=== PATIENT | female | born 1955 | race Caucasian/White ===

== ENCOUNTER → 2020-03-06 14:35 | Outpatient (CLI) | payer MEDICARE, SELFPAY ==
[2020-03-06 15:40] LABS: Basophils # 0.1 K/mm3 (0-0.2); Basophils % 0.9 % (0.1-2.0); Eosinophils # 0.1 K/mm3 (0.0-0.4); Eosinophils % 1.7 % (0.1-12.0); Hematocrit 48.3 % (37.0-47.0); Hemoglobin 16.2 g/dL (12.2-16.2); Lymphocytes # 1.8 K/mm3 (0.7-4.5); Lymphocytes % 26.7 % (10-50); Mean Corpuscular HGB Conc 33.6 g/dL (31.8-35.4); Mean Corpuscular Hemoglobin 29.1 pg (27.0-31.2); Mean Corpuscular Volume 86.6 fl (81-99); Mean Platelet Volume 9.1 fl (7.4-10.4); Monocytes # 0.5 K/mm3 (0.1-1.0); Monocytes % 7.5 % (1.7-9.3); Neutrophils # 4.3 K/mm3 (1.8-7.8); Neutrophils % 63.1 % (37.0-80.0); Platelet Count 215 K/mm3 (142-424); Red Blood Count 5.58 M/mm3 (4.20-5.40); Red Cell Distribution Width 13.7 % (11.5-17.5); White Blood Count 6.7 K/mm3 (4.8-10.8)
[2020-03-06 15:51] LABS: Alanine Aminotransferase 29 U/L (12-78); Albumin Level 4.2 g/dl (3.5-5.0); Albumin/Globulin Ratio 1.4 (1.1-1.8); Alkaline Phosphatase 121 U/L (38-126); Anion Gap 9.4 mEq/L (5-15); Aspartate Amino Transferase 38 U/L (14-36); Bilirubin,Total 0.4 mg/dl (0.2-1.3); Blood Urea Nitrogen 18 mg/dl (7-17); Calcium 9.8 mg/dl (8.4-10.2); Carbon Dioxide 33 mmol/L (22.0-30.0); Chloride 104 mmol/L (98-107); Chol/HDL Ratio 2.5 (1-3.5); Cholesterol 202 mg/dl (140-200); Estimated Glomerular Filt Rate 72 ml/min (>60); GFR (African American) 87 ML/MIN (>60); Globulin 3.1 g/dL (1.3-3.2); Glucose 89 mg/dl (74-100); HDL Cholesterol 80 mg/dl (40-60); Potassium 5.4 mmoL/L (3.5-5.1); Sodium 141 mmol/L (136-145); Total Protein,Serum 7.3 g/dl (6.3-8.2); Triglycerides 83 mg/dl (30-150); VLDL Cholesterol 17 mg/dL (0-40)
[2020-03-06 16:02] LABS: Direct LDL Cholesterol 89.27 mg/dL (100-129)
[2020-03-06 16:10] LABS: 25-OH Vitamin D, Total 41.5 ng/mL (30-100); T4 (Thyroxine) 15.7 ug/dl (5.53-11.0)
[2020-03-06 16:23] LABS: Thyroid Stimulating Hormone 0.49 uIU/mL (0.465-4.68)
== END ==
PROVIDERS: Visit Provider Family Medicine
DX: E55.9 Vitamin D deficiency, unspecified (principal); C73 Malignant neoplasm of thyroid gland; E75.5 Other lipid storage disorders
CPT/HCPCS: 80053; 80061; 82306; 84436; 84443; 85025

== ENCOUNTER → 2021-07-24 14:18 | Outpatient (CLI) | payer MEDICARE, SELFPAY ==
[2021-07-24 13:31] LABS: Basophils # 0.1 K/mm3 (0-0.2); Eosinophils # 0.1 K/mm3 (0.0-0.4); Eosinophils % 2.2 % (0.1-12.0); Hematocrit 46.9 % (37.0-47.0); Hemoglobin 15.6 g/dL (12.2-16.2); Lymphocytes # 1.5 K/mm3 (0.7-4.5); Lymphocytes % 27.5 % (10-50); Mean Corpuscular HGB Conc 33.4 g/dL (31.8-35.4); Mean Corpuscular Hemoglobin 29.6 pg (27.0-31.2); Mean Corpuscular Volume 88.5 fl (81-99); Mean Platelet Volume 9.5 fl (7.4-10.4); Monocytes # 0.5 K/mm3 (0.1-1.0); Monocytes % 9.2 % (1.7-9.3); Neutrophils # 3.2 K/mm3 (1.8-7.8); Neutrophils % 59.1 % (37.0-80.0); Platelet Count 227 K/mm3 (142-424); Red Blood Count 5.29 M/mm3 (4.20-5.40); White Blood Count 5.4 K/mm3 (4.8-10.8)
[2021-07-24 13:34] LABS: Alanine Aminotransferase 37 U/L (12-78); Albumin Level 3.9 g/dl (3.5-5.0); Albumin/Globulin Ratio 1.3 (1.1-1.8); Alkaline Phosphatase 135 U/L (38-126); Anion Gap 8.3 mEq/L (5-15); Aspartate Amino Transferase 45 U/L (14-36); Bilirubin,Total 0.3 mg/dl (0.2-1.3); Blood Urea Nitrogen 21 mg/dl (7-17); Calcium 9.5 mg/dl (8.4-10.2); Carbon Dioxide 32 mmol/L (22.0-30.0); Chloride 104 mmol/L (98-107); Chol/HDL Ratio 2.9 (1-3.5); Cholesterol 209 mg/dl (140-200); Estimated Glomerular Filt Rate 83 ml/min (>60); GFR (African American) 101 ML/MIN (>60); Globulin 2.9 g/dL (1.3-3.2); Glucose 90 mg/dl (74-100); HDL Cholesterol 73 mg/dl (40-60); Potassium 5.3 mmoL/L (3.5-5.1); Sodium 139 mmol/L (136-145); Total Protein,Serum 6.8 g/dl (6.3-8.2); Triglycerides 65 mg/dl (30-150); VLDL Cholesterol 13 mg/dL (0-40)
[2021-07-24 13:44] LABS: Direct LDL Cholesterol 95.39 mg/dL (100-129)
[2021-07-24 14:04] LABS: Thyroid Stimulating Hormone 0.23 uIU/mL (0.465-4.68)
== END ==
PROVIDERS: Visit Provider Family Medicine
DX: E03.9 Hypothyroidism, unspecified (principal); Z85.850 Personal history of malignant neoplasm of thyroid
CPT/HCPCS: 80053; 80061; 84439; 84443; 85025

== ENCOUNTER → 2021-08-06 07:17 | Outpatient (CLI) | payer SELFPAY ==
--- NOTE | 2021-08-06 07:21 | CT_ITS ---
FINAL REPORT CLINICAL HISTORY: . cad screening FINDINGS: CT CORONARY CALCIUM SCORE W/O TECHNIQUE: Thin-section axial images were obtained through the heart and coronary arteries per CT coronary calcium score protocol. This study was performed with techniques to keep radiation doses as low as reasonably achievable (ALARA). Individualized dose reduction techniques using automated exposure control or adjustment of mA and/or kV according to the patient's size were employed. FINDINGS: On the axial images, there is calcification within the left anterior descending coronary artery. This gives a coronary artery calcium score of 9 based on the Agatston scale. This coronary artery calcium score places the patient within the 36th percentile based on age and gender. The heart size is normal. There is no pleural or pericardial effusion. Limited evaluation of the lungs reveal no suspicious nodule. There is mild scarring in the lung bases. IMPRESSION: Coronary artery calcium score of 9 based on the Agatston scale which places the patient in the 36th percentile based on age and gender. Reviewed, Interpreted and Dictated by Devan Dias III, MD Transcribed by Loren Ruiz Authenticated and [facility]
== END ==
PROVIDERS: PCP Family Medicine; Visit Provider Family Medicine
DX: Z82.49 Family history of ischemic heart disease and other diseases of the circulatory system (principal)
CPT/HCPCS: 75571

== ENCOUNTER → 2022-07-15 20:43 | Outpatient (CLI) | payer MEDICARE, SELFPAY ==
[2022-07-15 19:07] LABS: Basophils # 0.1 K/mm3 (0-0.2); Basophils % 0.9 % (0.1-2.0); Eosinophils # 0.1 K/mm3 (0.0-0.4); Eosinophils % 1.8 % (0.1-12.0); Hematocrit 46.4 % (37.0-47.0); Hemoglobin 14.7 g/dL (12.2-16.2); Lymphocytes # 1.8 K/mm3 (0.7-4.5); Lymphocytes % 28.2 % (10-50); Mean Corpuscular HGB Conc 31.6 g/dL (31.8-35.4); Mean Corpuscular Hemoglobin 28.1 pg (27.0-31.2); Mean Corpuscular Volume 88.7 fl (81-99); Mean Platelet Volume 9.9 fl (7.4-10.4); Monocytes # 0.5 K/mm3 (0.1-1.0); Neutrophils % 62.1 % (37.0-80.0); Platelet Count 216 K/mm3 (142-424); Red Blood Count 5.23 M/mm3 (4.20-5.40); Red Cell Distribution Width 13.8 % (11.5-17.5); White Blood Count 6.5 K/mm3 (4.8-10.8)
[2022-07-15 20:39] LABS: Alanine Aminotransferase 28 U/L (12-78); Albumin Level 4.1 g/dl (3.5-5.0); Albumin/Globulin Ratio 1.6 (1.1-1.8); Alkaline Phosphatase 111 U/L (38-126); Anion Gap 14.2 mEq/L (5-15); Aspartate Amino Transferase 36 U/L (14-36); Bilirubin,Total 0.4 mg/dl (0.2-1.3); Blood Urea Nitrogen 20 mg/dl (7-17); Calcium 9.2 mg/dl (8.4-10.2); Carbon Dioxide 30 mmol/L (22.0-30.0); Chloride 103 mmol/L (98-107); Chol/HDL Ratio 2.4 (1-3.5); Cholesterol 213 mg/dl (140-200); Estimated Glomerular Filt Rate 83 ml/min (>60); GFR (African American) 101 ML/MIN (>60); Globulin 2.6 g/dL (1.3-3.2); Glucose 80 mg/dl (74-100); HDL Cholesterol 88 mg/dl (40-60); Potassium 5.2 mmoL/L (3.5-5.1); Sodium 142 mmol/L (136-145); Total Protein,Serum 6.7 g/dl (6.3-8.2); Triglycerides 88 mg/dl (30-150); VLDL Cholesterol 18 mg/dL (0-40)
[2022-07-15 20:52] LABS: Direct LDL Cholesterol 101.32 mg/dL (100-129)
[2022-07-15 21:11] LABS: Thyroid Stimulating Hormone 0.34 uIU/mL (0.465-4.68)
[2022-07-15 22:08] LABS: T4 (Thyroxine) 14.3 ug/dl (5.53-11.0)
== END ==
PROVIDERS: PCP Family Medicine; Visit Provider Family Medicine
DX: E89.0 Postprocedural hypothyroidism (principal); I10 Essential (primary) hypertension; Z85.850 Personal history of malignant neoplasm of thyroid
CPT/HCPCS: 80053; 80061; 84436; 84443; 85025

== ENCOUNTER 2023-02-23 18:01 | Outpatient (CLI) | payer MEDICARE, SELFPAY ==
[2023-02-23 19:11] LABS: Basophils # 0.1 K/mm3 (0-0.2); Basophils % 1.1 % (0.1-2.0); Eosinophils # 0.1 K/mm3 (0.0-0.4); Eosinophils % 1.7 % (0.1-12.0); Hematocrit 46.5 % (37.0-47.0); Hemoglobin 15.3 g/dL (12.2-16.2); Lymphocytes # 1.8 K/mm3 (0.7-4.5); Mean Platelet Volume 9.3 fl (7.4-10.4); Monocytes # 0.5 K/mm3 (0.1-1.0); Monocytes % 7.5 % (1.7-9.3); Neutrophils # 3.8 K/mm3 (1.8-7.8); Neutrophils % 60.6 % (37.0-80.0); Platelet Count 242 K/mm3 (142-424); Red Blood Count 5.11 M/mm3 (4.20-5.40); Red Cell Distribution Width 13.4 % (11.5-17.5); White Blood Count 6.2 K/mm3 (4.8-10.8)
[2023-02-23 19:12] LABS: Chloride 102 mmol/L (98-107); Sodium 138 mmol/L (136-145)
[2023-02-23 19:13] LABS: Potassium 4.4 mmoL/L (3.5-5.1)
[2023-02-23 19:15] LABS: Alanine Aminotransferase 32 U/L (12-78); Albumin Level 4.1 g/dl (3.5-5.0); Albumin/Globulin Ratio 1.5 (1.1-1.8); Alkaline Phosphatase 118 U/L (38-126); Anion Gap 12.4 mEq/L (5-15); Aspartate Amino Transferase 38 U/L (14-36); Bilirubin,Total 0.5 mg/dl (0.2-1.3); Blood Urea Nitrogen 17 mg/dl (7-17); Carbon Dioxide 28 mmol/L (22.0-30.0); Cholesterol 212 mg/dl (140-200); Estimated Glomerular Filt Rate 83 ml/min (>60); GFR (African American) 101 ML/MIN (>60); Globulin 2.7 g/dL (1.3-3.2); Total Protein,Serum 6.8 g/dl (6.3-8.2); Triglycerides 83 mg/dl (30-150); VLDL Cholesterol 17 mg/dL (0-40)
[2023-02-23 19:16] LABS: Calcium 8.9 mg/dl (8.4-10.2); Chol/HDL Ratio 3.3 (1-3.5); Glucose 84 mg/dl (74-100); HDL Cholesterol 65 mg/dl (40-60)
[2023-02-23 19:27] LABS: Direct LDL Cholesterol 108.79 mg/dL (100-129)
[2023-02-23 19:32] LABS: T4 (Thyroxine) 15.3 ug/dl (5.53-11.0)
[2023-02-23 19:46] LABS: Thyroid Stimulating Hormone 0.72 uIU/mL (0.465-4.68)
== END 2023-02-23 23:59 ==
LOC: LAB.DROPOF 18:01
PROVIDERS: PCP Family Medicine; Visit Provider Family Medicine
DX: E03.9 Hypothyroidism, unspecified (principal); Z85.850 Personal history of malignant neoplasm of thyroid; I10 Essential (primary) hypertension
CPT/HCPCS: 80053; 80061; 84436; 84443; 85025

== ENCOUNTER 2023-08-15 09:59 | Outpatient (CLI) | payer MEDICARE, SELFPAY ==
[2023-08-15 19:13] LABS: T4 (Thyroxine) 11.1 ug/dl (5.53-11.0)
== END 2023-08-15 23:59 | disposition home or self-care (01) ==
LOC: LAB.DROPOF 08-16 10:00
PROVIDERS: PCP Family Medicine; Visit Provider Family Medicine
DX: E89.0 Postprocedural hypothyroidism; Z85.850 Personal history of malignant neoplasm of thyroid
CPT/HCPCS: 84436; 84443

== ENCOUNTER 2023-12-01 18:17 | Outpatient (CLI) | payer MEDICARE, SELFPAY ==
[2023-12-01 18:06] LABS: Basophils # 0.1 K/mm3 (0-0.2); Basophils % 1.6 % (0.1-2.0); Eosinophils # 0.1 K/mm3 (0.0-0.4); Eosinophils % 2.1 % (0.1-12.0); Hematocrit 45.8 % (37.0-47.0); Hemoglobin 15.6 g/dL (12.2-16.2); Lymphocytes # 1.5 K/mm3 (0.7-4.5); Lymphocytes % 26.8 % (10-50); Mean Corpuscular Hemoglobin 30.4 pg (27.0-31.2); Mean Corpuscular Volume 89.5 fl (81-99); Mean Platelet Volume 8.5 fl (7.4-10.4); Monocytes # 0.5 K/mm3 (0.1-1.0); Monocytes % 8.1 % (1.7-9.3); Neutrophils # 3.5 K/mm3 (1.8-7.8); Neutrophils % 61.5 % (37.0-80.0); Platelet Count 232 K/mm3 (142-424); Red Blood Count 5.12 M/mm3 (4.20-5.40); Red Cell Distribution Width 13.5 % (11.5-17.5); White Blood Count 5.7 K/mm3 (4.8-10.8)
[2023-12-01 18:10] LABS: Albumin Level 4.5 g/dl (3.5-5.0); Chloride 105 mmol/L (98-107); Potassium 4.4 mmoL/L (3.5-5.1); Sodium 139 mmol/L (136-145)
[2023-12-01 18:12] LABS: Alanine Aminotransferase 35 U/L (12-78); Anion Gap 12.4 mEq/L (5-15); Aspartate Amino Transferase 47 U/L (14-36); Blood Urea Nitrogen 18 mg/dl (7-17); Carbon Dioxide 26 mmol/L (22.0-30.0); Estimated Glomerular Filt Rate 83 ml/min (>60); GFR (African American) 100 ML/MIN (>60)
[2023-12-01 18:13] LABS: Albumin/Globulin Ratio 1.5 (1.1-1.8); Alkaline Phosphatase 115 U/L (38-126); Bilirubin,Total 0.6 mg/dl (0.2-1.3); Calcium 9.7 mg/dl (8.4-10.2); Chol/HDL Ratio 2.9 (1-3.5); Cholesterol 247 mg/dl (140-200); Glucose 92 mg/dl (74-100); HDL Cholesterol 84 mg/dl (40-60); Total Protein,Serum 7.5 g/dl (6.3-8.2); Triglycerides 86 mg/dl (30-150); VLDL Cholesterol 17 mg/dL (0-40)
[2023-12-01 18:24] LABS: Direct LDL Cholesterol 115.12 mg/dL (100-129)
[2023-12-01 18:28] LABS: T4 (Thyroxine) 14.8 ug/dl (5.53-11.0)
[2023-12-01 18:42] LABS: Thyroid Stimulating Hormone 3.96 uIU/mL (0.465-4.68)
== END 2023-12-01 23:59 | disposition home or self-care (01) ==
LOC: LAB.DROPOF 18:18
PROVIDERS: PCP Family Medicine; Visit Provider Family Medicine
DX: E03.9 Hypothyroidism, unspecified (principal); Z85.850 Personal history of malignant neoplasm of thyroid; I10 Essential (primary) hypertension
CPT/HCPCS: 80053; 80061; 84436; 84443; 85025

== ENCOUNTER 2024-11-05 15:47 | Outpatient (CLI) | payer MEDICARE, SELFPAY ==
--- OUTSIDE RECORDS SUMMARY | 2024-11-05 15:50 | XMS_ITS | Encounter Summary ---
Author Organization [facility] Address [address] [place] [id number] Care Team Providers Care Oil Scout Name Role Phone Lacy Zayas MD Primary Care Provider [phone] Source Comments This information has been disclosed to you from confidential records protectfrom disclosure by state law. You shall make no further disclosure of thisinformation without the specific, written, and informed release of theindividual to whom it pertains, or as otherwise permitted by law. A generalauthorization for the release of medical or other information is not sufficientfor the purposes of the release of HIV test results or diagnoses. [id number] Encounter Details Date Type Department Care Team (Late st Contact Info) Description 05/17/2014 Orders Only [facility] Nuclear Medicine [address] [place] [phone] Nabeel Catsro MD Malignant neoplasm of thyroid gland (CMS-HCC) (Primary Dx) Social History Tobacco Use Types Packs/Day Years Used Date Smoking Tobacco: Never Assessed Comments Unknown Sex and Gender Information Value Date Recorded Sex Assigned at Not on file Legal Sex Female 7:05 PM EST Gender Identity Not on file Sexual Orientation Not on file documented as of this encounter Plan of Treatment Not on file documented as of this encounter Results * (ABNORMAL) Thyroglobulin (05/20/2014 10:30 AM EDT) Thyroglobulin <0.2(L) 1.6 - 59.9 ng/mL 05/21/2014 11:34 AM EDT [facility] Thyroglobulin Ab <20.0 0.0 - 39.0 IU/mL 05/21/2014 12:07 PM EDT [facility] Serum specimen (specimen) 05/20/2014 10:30 AM EDT 05/20/2014 11:22 AM EDT Nabeel Castro MD LAB BLOOD ORDERABLES Final Result Performing Organization Address City/[facility] Co de Phone Number [facility] [address] [facility]. [address] * (ABNORMAL) TSH (Thyroid Stimulating Hormone) (05/20/2014 10:30 AM EDT) TSH 0.12(L) 0.34 - 5.60 uIU/mL 05/20/2014 1:05 PM EDT [facility] Comment:Please note: Effecti ve 02/19/14, reference range for this assay has changed. Serum specimen (specimen) 05/20/2014 10:30 AM EDT 05/20/2014 11:22 AM EDT Nabeel Castro MD LAB BLOOD ORDERABLES Final Result Performing Organization Address City/[facility] Co de Phone Number [facility] [address] [facility]. [address] documented in this encounter Visit Diagnoses Diagnosis Malignant neoplasm of thyroid gland (CMS-HCC)- Primary Malignant neoplasm of thyroid gland documented in this encounter Care Teams Oil Scout Relationship Specialty [place] [address] [place], [place] [phone] PCP - General 12/11/07 documented as of this encounter
--- OUTSIDE RECORDS SUMMARY | 2024-11-05 15:50 | XMS_ITS | Clinical Summary ---
Author Organization [facility] Address [address] [place] [address] Care Team Providers Care Jury Consultant Name Role Phone Lacy Zayas MD Primary Care Provider [phone] Source Comments This information has been disclosed to you from confidential records protectedfrom disclosure by state law. You shall make no further disclosure of thisinformation without the specific, written, and informed release of theindividual to whom it pertains, or as otherwise permitted by law. A generalauthorization for the release of medical or other information is not sufficientfor the purposes of therelease of HIV test results or diagnoses. 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
--- OUTSIDE RECORDS SUMMARY | 2024-11-05 15:50 | XMS_ITS | Encounter Summary ---
Author Organization [facility] Address [address] [place] [address] Care Team Providers Care Back Up Machine Operator Name Role Phone Lacy Zayas MD Primary Care Provider [phone] Source Comments This information has been disclosed [...] release of HIV test results or diagnoses. [id number] [facility] Encounter Details Date Type Department Care Team (Late st Contact Info) Description 05/20/[address] [facility] Nuclear Medicine [address] [place] [phone] Vannesa Varela Malignant neoplasm of thyroid gland (CMS-HCC) Social History Tobacco Use Types Packs/Day Years Used Date Smoking Tobacco: Never Assessed Comments Unknown Sex and Gender Information Value Date Recorded Sex Assigned at Not on file Legal Sex Female 7:05 PM EST Gender Identity Not on file Sexual Orientation Not on file documented as of this encounter Plan of Treatment Not on file documented as of this encounter Procedures Procedure Name Priority Date/Time Associated Diagnosis Comments THYROGLOBULIN Routine 05/20/2014 10:30 AM EDT Malignant neoplasm of thyroid gland (CMS-HCC) TSH Routine 05/20/2014 10:30 AM EDT Malignant neoplasm of thyroid gland (CMS-HCC) documented in this encounter Results * (ABNORMAL) Thyroglobulin (05/20/2014 10:30 AM EDT) Thyroglobulin <0.2(L) 1.6 - 59.9 ng/mL 05/21/2014 11:34 AM EDT [facility] Thyroglobulin Ab <20.0 0.0 - 39.0 IU/mL 05/21/2014 12:07 PM EDT [facility] Serum specimen (specimen) 05/20/2014 10:30 AM EDT 05/20/2014 11:22 AM EDT Nabeel Castro MD LAB BLOOD ORDERABLES Final Result [facility] [address] [facility]. [address] * (ABNORMAL) TSH (Thyroid Stimulating Hormone) (05/20/2014 10:30 AM EDT) TSH 0.12(L) 0.34 - 5.60 uIU/mL 05/20/2014 1:05 PM EDT [facility] Comment:Please note: Effecti ve 02/19/14, reference range for this assay has changed. Serum specimen (specimen) 05/20/2014 10:30 AM EDT 05/20/2014 11:22 AM EDT Nabeel Castro MD LAB BLOOD ORDERABLES Final Result [facility] [address] [facility]. [address] documented in this encounter Visit Diagnoses Diagnosis Malignant neoplasm of thyroid gland (CMS-HCC) Malignant neoplasm of thyroid gland documented in this encounter Care Teams Back Up Machine Operator Relationship Specialty [place] [address] [place] [id number] PCP - General 12/11/07 documented as of this encounter
--- OUTSIDE RECORDS SUMMARY | 2024-11-05 15:50 | XMS_ITS | Continuity of Care Document ---
Author Organization [facility] Address [address] [place] [address] Phone Care Team Providers Care Telemarketing Sales Representative Name Role Phone José Priest MD Primary Care Provider Kanchan Martinez MD Unavailable [phone] Encounters Date Type Department Care Team Description 05/15/2024 12:40 PM EDT Office Visit SEP Diabetes [address] [address] Susan Mike MD Postoperative hypothyroidism (Primary Dx); History of thyroid cancer 05/10/2024 Travel 05/01/2024 9:52 AM EDT - 05/01/2024 11:59 PM EDT Hospital Encounter [facility] [address] [place] [address] Postsurgical hypothyroidism; History of thyroid cancer Discharge Disposition: Home or Self Care 04/25/2024 11:00 AM EDT Office Visit [facility] [place] [address] [place] [address] Kanchan Martinez MD Chest pain, unspecified type (Primary Dx); Essential hypertension 04/24/2024 Travel 04/19/2024 10:40 PM EST - 04/21/2024 5:31 PM EST Hospital Encounter [facility] 6D TCU [facility] 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 [facility] [place] [address] Kanchan Martinez MD CORONARY ANGIOGRAM / CARDIAC CATHETERIZATION 04/19/2024 Travel 02/16/2024 Orders Only [facility] [address] [address] Susan Mike MD 02/14/2024 Telephone SEP [address] [address] Susan Mike MD Other (Path report request ) 02/13/2024 4:42 PM EST - 02/13/2024 11:59 PM EST Hospital Encounter [facility] [address] [place] [address] Postsurgical hypothyroidism; History of thyroid cancer Discharge Disposition: Home or Self Care 02/13/2024 3:00 PM EST Office Visit [facility] [address] [address] Susan Mike MD Postsurgical hypothyroidism (Primary Dx); History of thyroid cancer 02/11/2024 Travel 02/03/2024 Telephone SEP [address] [phone] Susan Mike MD Other (Records ) 10/10/2023 9:41 AM EDT - 10/10/2023 11:59 PM EDT Hospital Encounter [facility] Center Mammography [address] [place] [address] Encounter for screening mammogram for malignant neoplasm of breast Discharge Disposition: Home or Self Care 01/24/2023 10:30 AM EST Office Visit SEP Gen Surg Edg [address] [facility] [address] [place] [address] Jared Cedeno MD Status post laparoscopic appendectomy (Primary Dx) 01/19/2023 Telephone SEP Vascular Surg Edg [address] [facility] [address] [place] [address] Jared Cedeno MD Reschedule 01/14/2023 6:07 AM EST - 01/15/2023 11:47 AM EST Hospital Encounter [facility] [address] [place] [address] Hayley Waterman MD Habib, MD Wilian Garland Sidney D, MD Acute appendicitis with localized peritonitis, without perforation, abscess, or gangrene (Primary Dx); Acute appendicitis, unspecified acute appendicitis type Discharge Disposition: Home or Self Care 01/14/2023 4:15 PM EST Anesthesia Event [facility] [address] [place] [address] Alon Colon DO 01/14/2023 3:10 PM EST - 01/14/2023 4:10 PM EST Surgery [facility] [address] [place] [address] Jared Cedeno MD LAPAROSCOPIC APPENDECTOMY 01/14/2023 Travel 10/19/2022 9:30 AM EDT Office Visit [facility] [address] [place] [phone] Scooby Bustos APRN Chronic eczematous otitis externa of both ears (Primary Dx); Bilateral impacted cerumen 03/22/2022 Patient Outreach SEP [facility] [address] [place] [address] Lacy Zayas MD Central Patient Navigator Outreach (AWV) 07/08/2021 Travel 07/08/2021 9:58 AM EDT - 07/08/2021 11:59 PM EDT Hospital Encounter [facility] Mammography [address] [place] [address] Encounter for screening mammogram for malignant neoplasm of breast Discharge Disposition: Home or Self Care 01/27/2021 Travel 01/27/2021 12:50 PM EST Office Visit [facility] [place] [address] [facility] [address] [place] [address] Severiano Guerrero MD Bilateral impacted cerumen (Primary Dx); Abnormal auditory perception, bilateral; Sensorineural hearing loss of both ears 01/17/2021 10:10 AM EST Ancillary Procedure [address] [address] Eulogio Young MD Acute URI; Cough Discharge Disposition: Home or Self Care 01/17/2021 Travel 01/17/2021 9:30 AM EST Office Visit [address] [place] [address] Eulogio Young MD Acute URI (Primary Dx); Cough; Acute bronchitis, unspecified organism 11/05/2020 Travel 11/05/2020 8:27 AM EDT - 11/05/2020 11:59 PM EDT Hospital Encounter [facility] [address] [place] [address] COVID-19 (Primary Dx) Discharge Disposition: Home or Self Care 11/04/2020 Orders Only [facility] IN[facility]IENT [facility]ARMACY [facility] [place] [address] Joan Luis, PharmD COVID-19 11/03/2020 Travel 11/03/2020 7:15 PM EDT Office Visit [place] [address] [place] [address] Linda Real PA-C COVID-19 (Primary Dx); Loss of smell 05/23/2020 Telephone [facility] [address] [place] [address] Jaclyn Amos RMA Results (MRI) 05/16/2020 Travel 05/16/2020 9:33 AM EDT - 05/16/2020 11:59 PM EDT [facility] [address] [address] Severiano Guerrero MD Sudden hearing loss, left; Tinnitus, left ear; Sensorineural hearing loss, unilateral, left ear, with unrestricted hearing on the contralateral side Discharge Disposition: Home or Self Care 05/07/2020 Travel 05/07/2020 1:00 PM EDT Office Visit [facility] [place] [address] [place] [phone] Severiano Guerrero MD Tinnitus, left ear (Primary Dx); Sensorineural hearing loss (SNHL) of both ears; Sudden hearing loss, left 04/30/2020 Travel 04/30/2020 1:30 PM EDT Office Visit [facility] [address] [address] Severiano Guerrero MD Tinnitus, left ear (Primary Dx); Sensorineural hearing loss, unilateral, left ear, with unrestricted hearing on the contralateral side; Abnormal auditory perception, bilateral; Bilateral impacted cerumen; Sudden hearing loss, left 04/29/2020 Travel 11/26/2019 1:40 PM EDT Immun[address] [facility] [facility] [address] [facility] [place] [address] Colleen Gillis, RMA Immunization/Injectio n 11/26/2019 Travel 12/01/2018 Patient Outreach [facility] [address] [place] [address] Lacy Zayas MD Central Patient Navigator Outreach 11/01/2018 1:20 PM EDT Clinical Support [facility] [address] [place] [address] Wen Marc Flu vaccine need (Primary Dx) 04/18/2018 1:20 PM EST - 04/18/2018 11:59 PM EST Hospital Encounter [facility] [address] [place], [place] [address] Malignant neoplasm of thyroid gland (HCC) (Primary Dx) Discharge Disposition: Home or Self Care 11/02/2017 1:15 PM EDT Clinical Support [address] [place] [address] Sunshine Fajardo Need for prophylactic vaccination and inoculation against influenza (Primary Dx) 07/28/2017 11:10 AM EDT Office Visit [facility] [address] [facility] [place] [address] Keyonna Goss MD Well woman exam (Primary Dx); Lichen sclerosus; Vagina itching 04/27/[address] [place] [address] Virginia Mcclelland PA-C Medication Refill 03/09/2017 10:22 AM EST - 03/09/2017 11:59 PM EST Hospital Encounter [facility] [address] [place] [address] Malignant neoplasm of thyroid gland (HCC) (Primary Dx) Discharge Disposition: Home or Self Care 01/25/2017 2:15 PM EST Office Visit [address] [place] [address] Lacy Zayas MD Viral pharyngitis (Primary Dx); Sore throat 01/19/2017 3:10 PM EST Clinical Support [address] [place] [address] Wen Marc Flu vaccine need (Primary Dx) 08/30/2016 12:57 PM EDT - 08/30/2016 11:59 PM EDT Hospital Encounter [facility] [address] [place] [address] Virginia Mcclelland PA-C Visit for screening mammogram Discharge Disposition: Home or Self Care 08/30/2016 12:30 PM EDT - 08/30/2016 12:56 PM EDT Hospital Encounter [facility] DEXA [facility] [place] [place] [address] Virginia Mcclelland PA-C Screening for osteoporosis Discharge Disposition: Home or Self Care 08/10/2016 8:42 AM EDT - 08/10/2016 11:59 PM EDT Hospital Encounter [facility] [address] [address] Preventative health care; Need for hepatitis C screening test; Hypothyroidism, unspecified type Discharge Disposition: Home or Self Care 07/27/2016 9:00 AM EDT Office Visit [place] [address] [place] [place] [address] Virginia Mcclelland PA-C Preventative health care (Primary Dx); Visit for screening mammogram; Hypothyroidism, unspecified type; Anxiety; History of thyroid cancer; Need for hepatitis C screening test; Need for Zostavax administration; Screening for osteoporosis; Environmental allergies; Hemorrhoids, unspecified hemorrhoid type; Acute bacterial sinusitis; Osteoarthritis of ankle, unspecified laterality, unspecified osteoarthritis type 07/13/2016 Refill [place] [address] [address] Lacy Zayas MD Medication Refill 01/16/2016 9:57 AM EST - 01/16/2016 11:59 PM EST Hospital Encounter [facility] [address] [address] Malignant neoplasm of thyroid gland (HCC) (Primary Dx) Discharge Disposition: Home or Self Care 12/16/2015 1:50 PM EDT Clinical Support [place] [address] [place] [phone] Wen Marc Flu vaccine need (Primary Dx) 11/06/2015 Abstract [facility] [address] [place] [phone] Lulu Yates Lolly 10/13/2015 Refill [place] [address] [address] Lacy Zayas MD Medication Refill 03/06/2015 10:45 AM EST - 03/06/2015 11:59 PM EST Hospital Encounter [facility] [address] [place] [address] Abnormal laboratory test Discharge Disposition: Home or Self Care 03/03/2015 Orders Only [place] [address] [place] [address] Virginia Mcclelland PA-C Abnormal laboratory test (Primary Dx) 03/03/2015 8:37 AM EST - 03/03/2015 11:59 PM EST Hospital Encounter [place] Stress Test [facility] [place] [address] Virginia Mcclelland PA-C Palpitations Discharge Disposition: Home or Self Care 03/03/2015 8:37 AM EST - 03/03/2015 11:59 PM EST Hospital Encounter [facility] NUC MED [facility] [place] [address] Virginia Mcclelland PA-C Palpitations Discharge Disposition: Home or Self Care 02/25/2015 8:45 PM EST - 02/25/2015 11:59 PM EST Hospital Encounter [facility] LAB STEPHANIE PROCESSING [facility] [place] [address] Palpitations Discharge Disposition: Home or Self Care 02/25/2015 2:45 PM EST Office Visit [place] [address] [place] [address] Virginia Mcclelland PA-C Palpitations (Primary Dx); Hypothyroidism, unspecified hypothyroidism type 12/09/2014 2:49 PM EDT - 12/09/2014 11:59 PM EDT Hospital Encounter [facility] [address] [place] [address] Malignant neoplasm of thyroid gland (HCC) (Primary Dx) Discharge Disposition: Home or Self Care 10/22/2014 1:30 PM EDT Office Visit [place] [address] [place] [address] Lacy Zayas MD Cerumetrung impaction, bilateral (Primary Dx); Need for influenza vaccination 08/14/2014 11:51 AM EDT - 08/14/2014 11:59 PM EDT Hospital Encounter [facility] LAB STEPHANIE PROCESSING [facility] [place] [address] Bartolo Marie MD Routine gynecological examination Discharge Disposition: Home or Self Care 07/24/2014 3:15 PM EDT Office Visit [place] [address] [address] [place] [address] Lacy Zayas MD Anxiety (Primary Dx) 07/22/2014 Refill [place] [address] [address] [place] [address] Lacy Zayas MD Medication Refill 03/11/2014 9:15 AM EST - 03/11/2014 11:59 PM EST Hospital Encounter [facility] [place] [address] Bartolo Marie MD Other screening mammogram Discharge Disposition: Home or Self Care 12/26/2013 1:45 PM EST - 12/26/2013 11:59 PM EST Hospital Encounter [facility] LAB STEPHANIE PROCESSING [facility] [place] [address] Screening Discharge Disposition: Home or Self Care 12/26/2013 7:50 AM EST Clinical Support [place] [address] [address] [place] [phone] Wen Marc Flu vaccine need (Primary Dx) 12/25/2013 Telephone [place] [address] [address] [place] [phone] Wen Marc Labs Only 11/05/2013 9:13 AM EDT - 11/05/2013 11:59 PM EDT Hospital Encounter [facility] [address] [place] [address] Malignant neoplasm of thyroid gland (HCC) (Primary Dx) Discharge Disposition: Home or Self Care 09/27/2013 Telephone [place] [address] [place] [address] [address] Lacy Zayas MD Medication Refill 09/27/2013 Orders Only [place] [address] [phone] Virginia Mcclelland PA-C Anxiety (Primary Dx) 04/13/2013 1:45 PM EST Office Visit [place] [address] [place] [address] Lacy Zayas MD Acute back pain (Primary Dx) 04/13/2013 9:20 AM EST - 04/13/2013 11:59 PM EST Hospital Encounter [facility] [address] [facility] [address] [address] Virginia Mcclelland PA-C Abnormal growth of clavicle Discharge Disposition: Home or Self Care 04/03/2013 9:30 AM EST - 04/03/2013 11:59 PM EST Hospital Encounter [facility] [address] [place] [address] Clavicle enlargement Discharge Disposition: Home or Self Care 04/03/2013 8:45 AM EST - 04/03/2013 9:29 AM EST Hospital Encounter [facility] [place] [facility] [address] [address] Preventative health care Discharge Disposition: Home or Self Care 03/28/2013 10:00 AM EST Office Visit [facility] [address] [place] [address] Virginia Mcclelland PA-C Anxiety (Primary Dx); Preventative health care; Clavicle enlargement 01/25/2013 10:00 AM EST - 01/25/2013 11:59 PM EST Hospital Encounter [facility] [address] [place] [phone] Malignant neoplasm of thyroid gland (HCC) (Primary Dx) Discharge Disposition: Home or Self Care 12/14/2012 10:07 AM EDT - 12/14/2012 11:59 PM EDT Hospital Encounter [place] [facility] [place] [address] Bartolo Marie MD Other screening mammogram Discharge Disposition: Home or Self Care 11/16/2012 3:05 PM EDT Clinical Support [place] [address] [address] [place] [address] Wen Marc Flu vaccine need (Primary Dx) 08/09/2012 2:00 PM EDT Office Visit [place] [address] [place] [phone] Arsen Mcfarlane APRN Cerumen impaction (Primary Dx) 05/24/2012 Orders Only SEP [address] [address] Dominik Wharton MD 05/24/2012 Orders Only [facility] [address] [place] [address] [address] [place] [address] Dominik Wharton MD 04/28/[address] [place] [address] [place] [address] Lacy Zayas MD Medication Refill 04/21/[address] [place] [address] [place] [address] Lacy Zayas MD Medication Refill 04/17/2012 Telephone [facility] [address] [facility] [address] [place] [address] Dominik Wharton MD Visit Follow Up 04/12/2012 1:20 PM EST Office Visit [place] [phone] [facility] [address] [place] [address] Dominik Wharton MD Rectal bleeding (Primary Dx); Colon cancer screening 03/09/2012 11:25 AM EST - 03/09/2012 11:59 PM EST Hospital Encounter [facility] [address] [place] [address] Malignant neoplasm of thyroid gland (HCC) (Primary Dx) Discharge Disposition: Home or Self Care 01/19/[address] [place] [address] [place] [address] Lacy Zayas MD Medication Refill 12/01/2011 12:50 PM EDT Office Visit [place] [address] [place] [address] Geena Phan LPN Flu vaccine need (Primary Dx) 09/30/2011 1:25 PM EDT - 09/30/2011 11:59 PM EDT Hospital Encounter [facility] [address] [place] [address] Malignant neoplasm of thyroid gland (HCC) Discharge Disposition: Home or Self Care 09/02/2011 8:30 AM EDT - 09/02/2011 11:59 PM EDT [facility] [place] [address] Bartolo Marie MD Other screening mammogram Discharge Disposition: Home or Self Care 03/23/2011 12:45 PM EST - 03/23/2011 11:59 PM EST Hospital Encounter [facility] [address] [place] [address] Malignant neoplasm of thyroid gland (HCC) Discharge Disposition: Home or Self Care 02/05/2011 9:15 AM EST Office Visit [facility] [address] [address] Virginia Mcclelland PA-C Cerumen impaction (Primary Dx); STEFFANIE (serous otitis media) 02/04/2011 Refill SEP [facility] [place] [address] [place] [address] Lacy Zayas MD Medication Refill 12/22/2010 9:35 AM EST - 12/22/2010 11:59 PM EST Hospital Encounter [facility] [address] [place] [address] Malignant neoplasm of thyroid gland (HCC) Discharge Disposition: Home or Self Care 11/21/2010 11:45 AM EDT Office Visit [facility] [place] [address] [place] [address] Lacy Zayas MD Laryngitis; Psoriasis 11/06/2010 Refill SEP [place] [address] [place] [address] Lacy Zayas MD Medication Refill 09/09/2010 Refill SEP [facility] [place] [address] [place] [address] Lacy Zayas MD Medication Refill 06/17/2010 2:00 PM EDT - 06/17/2010 11:59 PM EDT Hospital Encounter [facility] LAB STEPHANIE PROCESSING [facility] [place] [address] Bartolo Marie MD Discharge Disposition: Home or Self Care 06/15/2010 Refill SEP [facility] [address] [place] [address] Lacy Zayas MD Medication Refill 06/15/2010 10:00 AM EDT - 06/15/2010 11:59 PM EDT Hospital Encounter [facility] [place] [address] Bartolo Marie MD Other screening mammogram Discharge Disposition: Home or Self Care 05/14/2010 4:20 PM EDT Office Visit [facility] [address] [place] [address] Elba Castro, SANCHO Elevated blood pressure (Primary Dx) 03/23/2010 Refill SEP [facility] [address] [place] [address] Katelin Blackwell RMA Medication Refill 11/11/2009 1:14 PM EDT - 11/11/2009 11:59 PM EDT Hospital Encounter [facility] LAB STEPHANIE PROCESSING [facility] [place] [address] Nabeel Castro Malignant neoplasm of thyroid gland (HCC) Discharge Disposition: Home or Self Care 05/13/2009 10:27 AM EDT - 05/13/2009 11:59 PM EDT Hospital Encounter [facility] SLED EDG Nabeel Castro 12/30/2008 12:01 AM EST - 12/30/2008 11:59 PM EST Hospital Encounter [facility] EPIC CON UNK EDG Bartolo Marie MD 12/09/2008 - 12/09/2008 11:59 PM EDT Hospital Encounter [facility] MEDICINE FTT Discharge Disposition: Home or Self Care 04/26/2008 11:37 AM EDT - 04/26/2008 11:59 PM EDT Hospital Encounter [facility] LAB EDG Nabeel Castro MD 06/09/2007 2:36 PM EDT - 06/09/2007 11:59 PM EDT Hospital Encounter [facility] NADIYAG Bartolo Marie MD 05/05/2007 3:51 PM EDT - 05/05/2007 11:59 PM EDT Hospital Encounter [facility] LAB Bartolo Santiago MD 07/25/2006 12:01 AM EDT - 07/25/2006 11:59 PM EDT Hospital Encounter [facility] NADI[facility]AG Bartolo Marie MD 06/03/2005 Hospital Encounter [facility] MEDICINE FTT Generic, Historical Provider 05/06/2003 12:01 AM EST - 05/06/2003 11:59 PM EST Hospital Encounter [facility] CTR WOM WEL Bartolo Santiago MD 06/28/2001 Hospital Encounter [facility]ST UNKNFTT Generic, Historical Provider 09/27/2000 9:29 AM EDT - 09/27/2000 11:59 PM EDT Hospital Encounter [facility] LAB Bartolo Santiago MD 03/24/2000 9:55 AM EST - 03/24/2000 11:59 PM EST Hospital Encounter [facility] NADIYAG Bartolo Marie MD 07/09/1999 1:31 AM EDT - 07/09/1999 11:59 PM EDT Hospital Encounter [facility] CTR WOM Bartolo Buenrostro MD 05/28/1999 4:27 PM EDT - 05/28/1999 11:59 PM EDT Hospital Encounter [facility] LAB Bartolo Santiago MD 12/27/1997 8:24 AM EST - 12/27/1997 11:59 PM EST Hospital Encounter [facility] LAB EDG Jose Arreola 05/07/1996 4:46 PM EST - 05/07/1996 11:59 PM EST Hospital Encounter [facility] EPIC CON UNK EDG Jose Arreola Allergies Active Allergy Reactions Criticality Noted Date Comments Penicillins Other (See Comments) 11/21/2010 HIVES Medications hydrOXYzine (ATARAX) 25 mg Oral TabletIndication s:Anxiety Take 1 Tab by mouth 3 times daily as needed. 270 Tab 04/27/2017 Active lisinopriL (PRINIVIL;ZESTRI L) 10 mg Oral Tablet Take 10 mg by mouth daily. Active aspirin 81 mg Oral Tablet, Chewable Take 1 Tablet by mouth daily. 30 Tablet 04/22/2024 Active LEVOthyroxine (SYNTHROID) 100 mcg Oral Tablet Take 1 Tablet by mouth daily. 90 Tablet 3 05/15/2024 Active Active Problems Problem Noted Date Diagnosed Date Chest pain, unspecified type 04/20/2024 Elevated troponin 04/20/2024 Primary hypertension 04/20/2024 NSTEMI (non-ST elevated myocardial infarction) 0 04/19/2024 Tinnitus, left ear 04/30/2020 Sensorineural hearing loss, unilateral, left ear, with unrestricted hearing on the contralateral side 04/30/2020 Anxiety 07/24/2014 History of thyroid cancer 02/05/2011 Overview (02/05/2011): Followed by Dr. Nabeel Castro Assessment & Plan (05/15/2024 12:59 PM EDT): Assessment & Plan (02/13/2024 5:23 PM EST): Orders: THYROID STIMULATING HORMONE; Future T4, FREE (THYROXINE); Future T3 FREE; Future T4, TOTAL (THYROXINE) -REF LAB; Future THYROGLOBULIN AND TG AB REFLEX MONITOR-REF LAB; Future THYROID STIMULATING HORMONE; Future T4, FREE (THYROXINE); Future Postoperative hypothyroidism Overview (07/27/2016): Followed by Dr. Sunil Castro Assessment & Plan (05/15/2024 12:59 PM EDT): Orders: THYROID STIMULATING HORMONE; Future Resolved Problems Problem Noted Date Diagnosed Date Resolved Date Acute appendicitis with loca lized peritonitis, without perforation, abscess, or gangrene 01/14/2023 02/13/2024 COVID-19 11/04/2020 02/13/2024 Immunizations Immunization Administration Dates Next Due Influenza Seasonal Injectable 12/26/2013 Influenza Vaccine Quadrivalent 8,01/19/2017,12/16/2015,2014 Influenza Vaccine, Unspecifi ed Formulation 11/16/2012,12/01/2011 Influenza Virus Vaccine Quad rivalant, Flublok 11/01/2018 Quadrivalent Influenza High Dose 11/26/2019 Tdap 01/02/2016 Zoster 07/27/2016 Family History Medical History Relation Name Comments Diabetes Brother Valdez [place] Hypertension Brother Valdez [place] Heart Attack Father Thyroid Disease Maternal Grandmother Elisa Hitchcock Coronary Art Dis Mother Capri [place] Heart Attack Mother Capri [place] High Blood Pressure Mother Capri Madr[place] High Cholesterol Mother Capri [place] Osteoporosis Mother Capri [place] Diabetes Paternal Grandmother Bianka [place] Cancer Neg Hx Relation Name Status Comments Brother Valdez [place] Father Maternal Grandmother Elisa Hitchcock Mother Capri [place] Paternal Grandmother Bianka [place] Social History Smoking Status as of 11/05/2024 Tobacco Use Types Packs/Day Years Used Date Smoking Tobacco: Never Assessed [facility] Utilities Answer Date Recorded In the past 12 months has [employer], gas, oil, or water [employer] threatened to shut off services in your home? No 04/20/2024 Overall Financial Resource Strain (CARDIA) Answe r Date Recorded How hard is it for you to pa y for the very basics like food, housing, medical care, and heating? Not hard at all 04/20/2024 PHQ-2 Answer Date Recorded PHQ-2 Total Score 0 04/20/2024 [facility] - Occupational Stress Questionnaire Answer Date Recorded Do you feel stress - tense, restless, nervous, or anxious, or unable to sleep at night because your mind is troubled all the time - these days? Only a little 04/20/2024 Exercise Vital Sign Answer Date Recorde d On average, how many days pe r week do you engage in moderate to strenuous exercise (like a brisk walk)? 5 days 04/20/2024 On average, how many minutes do you engage in exercise at this level? 60 min 04/20/2024 Hunger Vital Sign Answer Date Recorded Within the past 12 months, y ou worried that your food would run out before you got the money to buy more. Never true 04/21/19 25 Within the past 12 months, t he food you bought just didn't last and you didn't have money to get more. Never true 04/20/2024 [facility] HRSN KINDRED [facility] IP Transportation Answer D ate Recorded In the past 12 months, has l ack of reliable transportation kept you from medical appointments, meetings, work or from getting things needed for daily living? No 04/20/2024 Sex and Gender Information Value Date Recorded Sex Assigned at Not on file Legal Sex Female 9:17 PM EDT Gender Identity Not on file Sexual Orientation Not on file Last Filed Vital Signs Vital Sign Reading Time Taken Comments Blood Pressure 128/66 05/15/2024 12:34 PM EDT Pulse 85 05/15/2024 12:34 PM EDT Temperature 36.5 C (97.7 F) 04/21/2024 4:06 PM EST Respiratory Rate 18 05/15/2024 12:34 PM EDT Oxygen Saturation 95% 04/25/2024 10:56 AM EDT Inhaled Oxygen Concentration - - Weight 79.4 kg (175 lb) 05/15/2024 12:34 PM EDT Height 167.6 cm (5' 6 ) 05/15/2024 12:34 PM EDT Body Mass Index 28.25 05/15/2024 12:34 PM EDT Plan of Treatment Upcoming Encounters Date Type Department Care Team (Late st Contact Info) Description 11/21/2024 1:30 PM EDT Office Visit SEP [facility] [address] [phone] Kanchan Martinez MD [address] [place] [id number] 05/21/2025 10:40 AM EDT Office Visit SEP Diabetes [place] [address] [place] [phone] Susan Mike MD [facility] [address] [place] [phone] Procedures Procedure Name Priority Date/Time Associated Diagnosis Comments T4, FREE (THYROXINE) Routine 05/01/2024 9:52 AM EDT Postsurgical hypothyroidism History of thyroid cancer THYROID STIMULATING HORMONE Routine 05/01/2024 9:52 AM EDT Postsurgical hypothyroidism History of thyroid cancer SCANNED EKG 04/21/2024 3:44 PM EST EC ECHOCARDIOGRAM COMPLETE W DOPPLER AND COLOR FLOW MAPPING Routine 04/21/2024 2:15 PM EST ECG AND WAVEFORMS - TELEMETRY Routine 04/21/2024 8:00 AM EST ECG AND WAVEFORMS - TELEMETRY Routine 04/21/2024 7:02 AM EST ECG AND WAVEFORMS - TELEMETRY Routine 04/20/2024 8:05 PM EST HEPARIN ANTI-XA, UNF Timed 04/20/2024 6:22 PM EST IP CONSULT TO NUTRITION Routine 04/20/2024 3:40 PM EST LEFT VENTRICULOGRAM Routine 04/20/2024 3:06 PM EST NSTEMI (non-ST elevated myocardial infarction) (HCC) CARDIAC PROCEDURE Routine 04/20/2024 3:06 PM EST NSTEMI (non-ST elevated myocardial infarction) (HCC) CARDIAC PROCEDURE Routine 04/20/2024 3:06 PM EST NSTEMI (non-ST elevated myocardial infarction) (HCC) FELLER BUNCHER OPERATOR HEMODYNAMIC WAVEFORMS Routine 04/20/2024 2:31 PM EST ADMIT Routine 04/20/2024 12:14 PM EST HEPARIN ANTI-XA, UNF Timed 04/20/2024 9:48 AM EST ECG AND WAVEFORMS - TELEMETRY Routine 04/20/2024 7:02 AM EST HEMOGLOBIN A1C Routine 04/20/2024 6:39 AM EST LIPID SCREEN Routine 04/20/2024 6:39 AM EST TROPONIN-T HIGH SENSITIVITY 6 HR Timed 04/20/2024 4:32 AM EST ECG AND WAVEFORMS - TELEMETRY Routine 04/20/2024 3:30 AM EST IP CONSULT TO PHARMACY Routine 04/20/2024 1:28 AM EST TROPONIN-T HIGH SENSITIVITY 2HR Timed 04/20/2024 12:41 AM EST IP CONSULT TO CARDIOLOGY Routine 04/20/2024 12:28 AM EST Procedure Note - Kanchan Martinez MD - 04/20/2024 8:21 AM ESTThis note is in progress. Heart & Vascular Consult Note PATIENT: Virginia Bush 0 PCP: José Priest MD Primary Engineering Patternmaker: None I would like to thank Ángel Callejas DO for requesting me to see Virginia Hui for cardiac consultation for chest pain. History provided by: EMR, patient HPI: Virginia Bush is a 69 y.o. female with PMHx of HTN, HLD,Hypothyroidism, hx. thyroid cancer, and anxiety. Patient presented to theED with complaints of chest pain and bilateral forearm pain. Patientstates yesterday afternoon her bilateral forearms started to hurt and shethough she had worked out/painted and contributed her symptoms to that andthey resolved within a few hours. She went about her day without symptoms.Then last night around 830pm she had severe pain to bilateral forearmsfrom wrist to elbow and presented to the ER. At that time she states shedid feel some chest pressure 2/10. She did not have jaw/back/shoulderradiation. She denies exertional component. Denies SOB, lightheaded,dizziness, or diaphoresis. She does have history of acid reflux but statesthis is different. She does occasional have pedal edema but resolves bymorning. Does not recall having an echo in the past. She states she is very active at baseline walks and works out regularly.No CV complaints when doing so. She is a never smoker. Non-diabetic.Denies illicit drug use or alcohol use. Recently diagnosed with HTN onlisinopril 10 by her PCP. She states her BP can be labile and washypotensive with increased to 20mg QD. She states she had some sort ofheart scan that she recalls a doctor testing her she is 20 years youngerthan she actually is . She is concerned as her mother had to have bypassat 62 for the maker and she had previously negative stress tests. She also states she used to have palpitations/racing heart about 2 monthsago but since adjusting her thyroid medications those have stopped. Noreoccurnce in the last month. HR during that time was 102-105 per her BPmachine. She does not have the chest pressure or forearm pain at this time. Troponin: 41>48>52 LDL: 77 A1c: 5.8 EKG: SINUS RHYTHM WITH OCCASIONAL SUPRAVENTRICULAR PREMATURE COMPLEXES Non specific ST-T abnormality. Stress 03/03/2015: There are no significant reversible defects. Family History- Family History Problem Relation Age of Onset High Blood Pressure Mother High Cholesterol Mother Osteoporosis Mother Heart Attack Mother Coronary Art Dis Mother Heart Attack Father Diabetes Brother Hypertension Brother Thyroid Disease Maternal Grandmother Diabetes Paternal Grandmother Cancer Neg Hx Social History- Social History Tobacco Use Smoking status: Never Smokeless tobacco: Never Substance Use Topics Alcohol use: No ROS: Denies: Constitutional: fever, chills, weight loss ENT: headaches, LOC Cardiovascular: +chest pain, +occasional pedal edema, palpitations,orthopnea, dyspnea, or syncope Pulmonary: cough, sputum production, wheezing and hemoptysis. Gastrointestinal: abdominal pain, nausea, vomiting, constipation,diarrhea, and melena. Genitourinary: change in bladder habits, burning and hematuria. 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 Authorizing Provider hydrOXYzine (ATARAX) 25 mg Oral Tablet Take 1 Tab by mouth 3 times dailyas needed. Patient taking differently: Take 25 mg by mouth nightly as needed (sleep).04/27/17 Yes Virginia Mcclelland PA-C LEVOthyroxine (SYNTHROID) 100 mcg Oral Tablet Take 1 Tablet by mouthdaily. 02/16/24 Yes Susan Mike MD lisinopriL (PRINIVIL;ZESTRIL) 10 mg Oral Tablet Take 10 mg by mouth daily.Yes Provider, Historical Inpatient Medications: LEVOthyroxine 100 mcg Oral DAILY EARLY AM heparin (porcine) 800 Units/hr (04/20/24 0343) Past Surgical History Past Surgical History: Procedure Laterality Date KNEE SURGERY Left 2004 LAPAROSCOPIC APPENDECTOMY N/A 01/14/2023 Laparoscopic Appendectomy; Surgeon: Jared Cedeno MD; Location:[facility] MAIN OR; Service: General THYROID SURGERY 2009 Allergy Allergies Allergen Reactions Penicillins Other (See Comments) HIVES Patient Active Problem List Diagnosis Hypothyroid History of thyroid cancer Anxiety Tinnitus, left ear Sensorineural hearing loss, unilateral, left ear, with unrestrictedhearing on the contralateral side Chest pain, unspecified type Elevated troponin Primary hypertension BP 129/70 (BP Location: Left arm, Patient Position: Semi Fowlers) Pulse88 Temp 97.5 F (36.4 C) (Axillary) Resp 16 Ht 5' 6 (1.676 m) Wt 173 lb 6.4 oz (78.7 kg) SpO2 97% BMI 27.99 kg/m I/O 24 hours: Intake/Output Summary (Last 24 hours) at 04/20/2024 0821 Last data filed at 04/20/2024 0343 Gross per 24 hour Intake 14.45 ml Output -- Net 14.45 ml Diagnostic tests The most recent cardiovascular imaging studies available in [facility] EMR werereviewed at time of consultation Exam: Pt lying in bed in no distress. Family at bedside. Head: Atraumatic, normocephalic. Neck: no JVD , supple Heart: S1, S2 regular, no M/R/G, chest wall nontender Lung: CTA Ext: no edema Neuro: Alert and oriented x 3 Mood and affect: appropriate Skin: warm and dry Telemetry: SR Assessment NSTEMI - Troponin 41>48>52 - Started on heparin gtt - continue bASA - denies CP/ forearm pain at this time - obtain echo - will discuss ischemic eval with Dr. 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 Thyroid cancer - Synthroid - Follows with endocrine at Anxiety - RETAIL BUSINESS ANALYST hydroxyzine Further input from Dr. Michelle Kaur, CORPORATE TRUST OFFICER Heart and Vascular 04/20/2024 Disposition Perspective - Medically Ready for Discharge: No Anticipated Discharge: 1-2 days Discharge when / if: pending ischemic eval, Dr. Martinez to assess ATTENDING PHYSICIAN ATTESTATION: The patient was seen in collaboration with the nurse practioner. I have reviewed all the pertinent history, laboratory and radiologystudies. I have taken a history and performed a physical examination of thispatient. I have reviewed the history, physical, assessment and plan as outlinedabove. My findings are below: CC/HPI: Virginia Bush is a 69 y.o. female who presents with recurrent bilateralforearm pain, heaviness was much worse last night at rest, also had chestpressure/ indigestion She has hx of HTN labile Very active works out 5 x week Nonsmoker EXAM: Vitals noted NAD HENT: Nl EOM, no thyromegaly Heart: RRR S1S2 Lungs: CTA B Abdomen: soft non-tender, positive BS Extremities: No edema, pulses felt Skin: warm and dry Neurologic: alert and oriented Psychiatric: nl mood and affect STUDIES and LABS have been reviewed in detail. ASSESSMENT and PLAN: Virginia Bush is a 69 y.o. female who has the following issues: NSTEMI some atypical features Had some CP and mild trop elevation ECG no acute changes Will proceed with [facility] Cotninue heparin Med rx Discussed with pt and family at bedside Kanchan Martinez MD 04/20/2024 1:40 PM ADMIT Routine 04/20/2024 12:28 AM EST XR CHEST AP PORTABLE STACY 04/19/2024 11:02 PM EST TROPONIN-T HIGH SENSITIVITY BASELINE W/ REFLEX STAT 04/19/2024 10:51 PM EST BASIC METABOLIC PANEL STAT 04/19/2024 10:51 PM EST CBC STAT 04/19/2024 10:51 PM EST SALINE LOCK IV STAT 04/19/2024 10:47 PM EST EK EKG 12 LEAD STAT 04/19/2024 10:26 PM EST BILL TG CL Routine 02/13/2024 5:02 PM EST Postsurgical hypothyroidism History of thyroid cancer THYROGLOBULIN AND TG AB REFLEX MONITOR-REF LAB Routine 02/13/2024 5:02 PM EST Postsurgical hypothyroidism History of thyroid cancer T4, TOTAL (THYROXINE) -REF LAB Routine 02/13/2024 5:02 PM EST Postsurgical hypothyroidism History of thyroid cancer T3 FREE Routine 02/13/2024 5:02 PM EST Postsurgical hypothyroidism History of thyroid cancer T4, FREE (THYROXINE) Routine 02/13/2024 5:02 PM EST Postsurgical hypothyroidism History of thyroid cancer THYROID STIMULATING HORMONE Routine 02/13/2024 5:02 PM EST Postsurgical hypothyroidism History of thyroid cancer MM MAMMO DIGITAL FRANCISCO SCREEN BILAT Routine 10/10/2023 10:01 AM EDT Encounter for screening mammogram for malignant neoplasm of breast PATHOLOGY TISSUE REQUEST Routine 01/14/2023 4:49 PM EST Acute appendicitis, unspecified acute appendicitis type INTRAOP AIRWAY PLACEMENT Routine 01/14/2023 4:24 PM EST LAPAROSCOPIC APPENDECTOMY 01/14/2023 4:15 PM EST Acute appendicitis, unspecified acute appendicitis type ADMIT Routine 01/14/2023 8:[address] ABD PEL ED FAST W CONTRAST STAT 01/14/2023 7:54 AM EST URINALYSIS REFLEX STAT 01/14/2023 6:59 AM EST UA W/REFLEX TO CULTURE STAT 01/14/2023 6:59 AM EST URINE CULTURE (NO STAIN) STAT 01/14/2023 6:59 AM EST EXTRA COLEMAN URINE CX STAT 01/14/2023 6:59 AM EST LIPASE LEVEL STAT 01/14/2023 6:23 AM EST COMPREHENSIVE METABOLIC PANEL STAT 01/14/2023 6:23 AM EST CBC WITH DIFF STAT 01/14/2023 6:23 AM EST MM MAMMO DIGITAL FRANCISCO SCREEN BILAT Routine 07/08/2021 10:29 AM EDT Encounter for screening mammogram for malignant neoplasm of breast XR CHEST PA AND LATERAL STAT 01/17/2021 10:17 AM EST Acute URI Cough POCT INFLUENZA A/B Routine 01/17/2021 10:04 AM EST Acute URI Cough POCT IDALIA SARS ANTIGEN Routine 11/03/2020 7:40 PM EDT COVID-19 Loss of smell MRI BRAIN ATTN IACS W WO CONTRAST Routine 05/16/2020 10:36 AM EDT Sudden hearing loss, left Tinnitus, left ear Sensorineural hearing loss, unilateral, left ear, with unrestricted hearing on the contralateral side SCANNED LABS 11/15/2018 10:21 AM EDT BILL TG CL Routine 04/18/2018 1:32 PM EST Malignant neoplasm of thyroid gland (HCC) THYROGLOBULIN AND TG AB REFLEX MONITOR-REF LAB Callback 04/18/2018 1:32 PM EST Malignant neoplasm of thyroid gland (HCC) THYROID STIMULATING HORMONE Callback 04/18/2018 1:32 PM EST Malignant neoplasm of thyroid gland (HCC) SCANNED LABS 11/08/2017 3:19 PM EDT PRODUCT DEVELOPMENT WORKER CYTOLOGY REQUEST (PAP ONLY) Routine 07/28/2017 12:00 PM EDT Well woman exam [facility] PRODUCT DEVELOPMENT WORKER CYTOLOGY ORDER Routine 07/28/2017 12:00 PM EDT Well woman exam HPV HIGH RISK WITH REFLEX TO GENOTYPE Routine 07/28/2017 12:00 PM EDT Well woman exam VAGINAL PANEL Routine 07/28/2017 12:00 PM EDT Vagina itching BILL TG CL Routine 03/09/2017 10:27 AM EST Malignant neoplasm of thyroid gland (HCC) THYROGLOBULIN AND TG AB REFLEX MONITOR-REF LAB Callback 03/09/2017 10:27 AM EST Malignant neoplasm of thyroid gland (HCC) THYROID STIMULATING HORMONE Callback 03/09/2017 10:27 AM EST Malignant neoplasm of thyroid gland (HCC) STREP A DNA Routine 01/25/2017 4:39 PM EST Sore throat POCT RAPID STREP A Routine 01/25/2017 3:09 PM EST Sore throat SCANNED LABS 01/20/2017 9:27 AM EST MM MAMMO DIGITAL FRANCISCO SCREEN BILAT Routine 08/30/2016 1:21 PM EDT Visit for screening mammogram DX BONE DENSITY AXIAL SKELETON Routine 08/30/2016 1:04 PM EDT Screening for osteoporosis DIFFERENTIAL Routine 08/10/2016 8:51 AM EDT THYROID STIMULATING HORMONE Routine 08/10/2016 8:51 AM EDT Hypothyroidism, unspecified type THYROGLOBULIN AND TG AB REFLEX MONITOR-REF LAB Routine 08/10/2016 8:51 AM EDT Hypothyroidism, unspecified type LIPID SCREEN Routine 08/10/2016 8:51 AM EDT Preventative health care HCV ANTIBODY SCREEN W/ REFLEX Routine 08/10/2016 8:51 AM EDT Need for hepatitis C screening test COMPREHENSIVE METABOLIC PANEL Routine 08/10/2016 8:51 AM EDT Preventative health care CBC WITH DIFF Routine 08/10/2016 8:51 AM EDT Preventative health care THYROGLOBULIN AND TG AB REFLEX MONITOR-REF LAB Callback 01/16/2016 10:00 AM EST Malignant neoplasm of thyroid gland (HCC) THYROID STIMULATING HORMONE Callback 01/16/2016 10:00 AM EST Malignant neoplasm of thyroid gland (HCC) SCANNED LABS 12/22/2015 11:40 AM EST DIFFERENTIAL Routine 03/06/2015 10:45 AM EST CBC WITH DIFF Routine 03/06/2015 10:45 AM EST Abnormal laboratory test SCANNED RADIOLOGY REPORT 03/04/2015 8:35 AM EST NM MYOCARDIAL PERFUSION SPECT STRESS AND REST Routine 03/03/2015 11:[address] STRESS TEST EXERCISE Routine 03/03/2015 11:18 AM EST Palpitations DIFFERENTIAL Routine 02/25/2015 3:48 PM EST THYROID STIMULATING HORMONE Routine 02/25/2015 3:48 PM EST Palpitations COMPREHENSIVE METABOLIC PANEL Routine 02/25/2015 3:48 PM EST Palpitations CBC WITH DIFF Routine 02/25/2015 3:48 PM EST Palpitations POCT EKG Routine 02/25/2015 3:30 PM EST Palpitations THYROGLOBULIN AND TG AB REFLEX MONITOR-REF LAB Routine 12/09/2014 3:00 PM EDT Malignant neoplasm of thyroid gland (HCC) THYROID STIMULATING HORMONE Routine 12/09/2014 3:00 PM EDT Malignant neoplasm of thyroid gland (HCC) SCANNED LABS 10/25/2014 12:50 PM EDT PRODUCT DEVELOPMENT WORKER CYTOLOGY REPORT Routine 08/14/2014 5:18 AM EDT MM MAMMO DIGITAL SCREENING W CAD BILAT Routine 03/11/2014 10:00 AM EST Other screening mammogram SCANNED LABS 12/27/2013 8:22 AM EST VITAMIN D 25 HYDROXY Routine 12/26/2013 7:54 AM EST Screening VITAMIN B12 LEVEL Routine 12/26/2013 7:54 AM EST Screening LIPID SCREEN Routine 12/26/2013 7:54 AM EST Screening HEPATIC FUNCTION PANEL Routine 12/26/2013 7:54 AM EST Screening CBC Routine 12/26/2013 7:54 AM EST Screening BASIC METABOLIC PANEL Routine 12/26/2013 7:54 AM EST Screening THYROGLOBULIN -REF LAB Callback 11/05/2013 9:15 AM EDT Malignant neoplasm of thyroid gland (HCC) THYROGLOBULIN ANTIBODY -REF LAB Callback 11/05/2013 9:15 AM EDT Malignant neoplasm of thyroid gland (HCC) THYROID STIMULATING HORMONE Callback 11/05/2013 9:15 AM EDT Malignant neoplasm of thyroid gland (HCC) CT CHEST W CONTRAST Routine 04/13/2013 9:57 AM EST Abnormal growth of clavicle XR CLAVICLE LEFT Routine 04/03/2013 9:50 AM EST Clavicle enlargement XR CLAVICLE RIGHT Routine 04/03/2013 9:50 AM EST Clavicle enlargement DIFFERENTIAL Routine 04/03/2013 8:45 AM EST LIPID SCREEN Routine 04/03/2013 8:45 AM EST Preventative health care HEMOGLOBIN A1C Routine 04/03/2013 8:45 AM EST Preventative health care COMPREHENSIVE METABOLIC PANEL Routine 04/03/2013 8:45 AM EST Preventative health care CBC WITH DIFF Routine 04/03/2013 8:45 AM EST Preventative health care THYROGLOBULIN AND TG AB REFLEX MONITOR-REF LAB Routine 01/25/2013 10:14 AM EST Malignant neoplasm of thyroid gland (HCC) THYROID STIMULATING HORMONE Callback 01/25/2013 10:14 AM EST Malignant neoplasm of thyroid gland (HCC) MM MAMMO DIGITAL SCREENING W CAD BILAT Routine 12/14/2012 10:25 AM EDT Other screening mammogram SCANNED LABS 11/17/2012 12:37 PM EDT GMED COLONOSCOPY Routine 05/24/2012 6:30 AM EDT SBCPT-QUEST Routine 05/24/2012 6:30 AM EDT TISSUE PATHOLOGY-QUEST Routine 05/24/2012 6:30 AM EDT THYROGLOBULIN AND TG AB REFLEX MONITOR-REF LAB Routine 03/09/2012 11:33 AM EST Malignant neoplasm of thyroid gland (HCC) THYROID STIMULATING HORMONE Routine 03/09/2012 11:33 AM EST Malignant neoplasm of thyroid gland (HCC) SCANNED LABS 12/06/2011 12:00 AM EDT THYROGLOBULIN -REF LAB Routine 09/30/2011 1:30 PM EDT Malignant neoplasm of thyroid gland (HCC) THYROID STIMULATING HORMONE Routine 09/30/2011 1:30 PM EDT Malignant neoplasm of thyroid gland (HCC) MM MAMMO DIGITAL SCREENING W CAD BILAT Routine 09/02/2011 9:03 AM EDT Other screening mammogram THYROGLOBULIN -REF LAB Callback 03/23/2011 12:50 PM EST Malignant neoplasm of thyroid gland (HCC) THYROID STIMULATING HORMONE Callback 03/23/2011 12:50 PM EST Malignant neoplasm of thyroid gland (HCC) THYROGLOBULIN -REF LAB Callback 12/22/2010 9:43 AM EST Malignant neoplasm of thyroid gland (HCC) THYROID STIMULATING HORMONE Callback 12/22/2010 9:43 AM EST Malignant neoplasm of thyroid gland (HCC) PRODUCT DEVELOPMENT WORKER CYTOLOGY REPORT Routine 06/17/2010 1:53 AM EDT MM MAMMO DIGITAL SCREENING W CAD BILAT Routine 06/15/2010 10:22 AM EDT Other screening mammogram THYROID STIMULATING HORMONE Routine 11/11/2009 1:14 PM EDT Malignant neoplasm of thyroid gland (HCC) THYROID STIMULATING HORMONE Routine 05/13/2009 10:32 AM EDT MM DIG SCR ANDREW PANEL W/CAD Routine 12/30/2008 7:45 AM EST DXA SCAN AXIAL SKELETON Routine 12/05/2008 12:00 AM EDT WW MAMMO SCREEN W/CAD II PANEL Routine 07/25/2006 10:45 AM EDT US THYROID/NECK/HEAD Routine 06/03/2005 12:00 AM EDT NM THYROID IMAGING WITH UPTAKE Routine 06/03/2005 12:00 AM EDT Results * THYROID STIMULATING HORMONE (05/01/2024 9:52 AM EDT) Only the most recent of16 resultswithin the time period is included. TSH 1.740 0.270 - 4.200 mcIU/mL 05/01/2024 5:13 PM EDT [employer] Blood VENOUS BLOOD / Unknown Venipuncture / Unknown 05/01/2024 9:52 AM EDT 05/01/2024 9:52 AM EDT Narrative [employer] - 05/01/2024 5:13 PM EDT Ingestion of rommel doses of biotin (>5 mg/day) taken within 8 hours of drawing blood sample can interfere with this immunoassay test. Susan Mike MD CHEMISTRY ORDERABLES Fin al Result Performing Organization Address [facility] de Phone Number [facility] [employer] [address] [place] [address] , [place] [address] * T4, FREE (THYROXINE) (05/01/2024 9:52 AM EDT) Only the most recent of2 resultswithin the time period is included. Pathologist [facility] Free T4 1.74 0.80 - 1.80 ng/dL 05/01/2024 5:13 PM EDT [employer] Blood VENOUS BLOOD / Unknown Venipuncture / Unknown 05/01/2024 9:52 AM EDT 05/01/2024 9:52 AM EDT Narrative [employer] - 05/01/2024 5:13 PM EDT Ingestion of rommel doses of biotin (>5 mg/day) taken within 8 hours of drawing blood sample can interfere with this immunoassay test. Susan Mike MD CHEMISTRY ORDERABLES Fin al Result Performing Organization Address [facility] Phone Number [employer] [address] [place] [address] , [place] [address] * SCANNED EKG (04/21/2024 3:44 PM EST) Anatomical Region Laterality Modality Other 04/21/2024 3:44 PM EST Unknown Provider IMG ECG ORDERABLES Final Result * EC ECHOCARDIOGRAM COMPLETE W DOPPLER AND COLOR FLOW MAPPING (04/21/2024 2:15 PM EST) Pathologist [facility] LV DIASTOLIC PLAX 3.54 cm PYRAMIS Ejection Fraction 55-60% PYRAMIS MITRAL REGURGITATION trace PYRAMIS AORTIC STENOSIS no PYRAMIS Anatomical Region Laterality Modality Electrocardiogra phy 04/21/2024 1:24 PM EST Impressions 04/21/2024 4:21 PM EST Conclusions * Left ventricular chamber dimension is decreased. * Left ventricular function is normal with an estimated ejection fraction of 55-60%. * Left ventricular segmental wall motion is normal. * There is mildly increased left ventricular wall thickness. * Right ventricular systolic function is normal. Narrative Procedure Note Dominik Stein MD - 04/21/2024 IMPRESSION Conclusions * Left ventricular chamber dimension is decreased. * Left ventricular function is normal with an estimated ejectionfraction of 55-60%. * Left ventricular segmental wall motion is normal. * There is mildly increased left ventricular wall thickness. * Right ventricular systolic function is normal. Shweta Kaur CORPORATE TRUST OFFICER IMG ECHO ORDERABLES Final Result * ECG AND WAVEFORMS - TELEMETRY (04/20/2024 8:05 PM EST) Only the most recent of3 resultswithin the time period is included. Pathologist [facility] ECG INTERPRET Sinus Tachycardia [facility] 04/20/2024 8:05 PM EST Narrative [facility] - 04/20/2024 8:19 PM EST w/IVCD ROUTINE/AJ GA 0.12 QRS 0.14 RR 0.52 QT 0.32 QTc 0.44 See Clinical Report link for waveform capture Unknown Provider POINT OF CARE CARDIOLOGY Final Result [facility] [address] [place] [address] * (ABNORMAL) HEPARIN ANTI-XA, UNF (04/20/2024 6:22 PM EST) Only the most recent of2 resultswithin the time period is included. Heparin Level UNF 0.06(L) 0.30 - 0.70 IU/mL 04/20/2024 6:43 PM EST [employer] Comment:The therapeutic rang e for heparinized patients monitored by the Heparin Lvl UF is 0.30-0.70 IU/mL. Blood VENOUS BLOOD / Unknown Venipuncture / Unknown 04/20/2024 6:22 PM EST 04/20/2024 6:31 PM EST us Himanshu Crawford CORPORATE TRUST OFFICER HEMATOLOGY ORDERABLES Final Result Performing Organization Address City/[facility]/ZIP Co de Phone Number [facility] [employer] [address], [place] [address] * CORONARY ANGIOGRAM (COR/LHC/LV GRAM, CARDIAC CATHETERIZATION), LEFT HEART CATH, LEFT VENTRICULOGRAM(04/20/2024 3:06 PM EST) Cath EF Estimated 60 % [facility] Narrative [facility] - 04/20/2024 3:07 PM EST - No significant CAD angiographically - Normal LVEDP and LV systolic function Procedure Details Procedure in Detail: SCA, LHC, LVG The patient was brought to the cardiac cath laboratory suite and was prepped and draped in the usual sterile fashion. Conscious sedation was achieved with IV versed and fentanyl. 10 ml of 2% lidocaine was used to provide local anesthesia over the prepared site. Using a modified Seldinger technique a sheath was introduced into the right radial artery. During the case meticulous sheath and catheter care was performed with frequent saline flushes. Selective coronary angiography was performed in various projections. A pigtail catheter was introduced into the left ventricle and hemodynamic measurements were made. If a left ventriculogram was performed then images were obtained in the [place] projection with the pigtail in the left ventricle using a power injector. The pigtail was then pulled back across the aortic valve to assess for an aortic valve pressure gradient. The patient was transferred to the cardiac energy systems laboratory director holding area in stable condition. Coronary Findings Diagnostic Dominance: Right Left Main: The vessel is angiographically normal. Left Anterior Descending: The vessel is angiographically normal. Left Circumflex: The vessel is angiographically normal. Right Coronary Artery: The vessel is angiographically normal. Intervention No interventions have been documented. Left Ventricle The left ventricular systolic function is normal. The ejection fraction is greater than 55% by visual estimate. Left Heart Pressures Normal LVEDP us Shweta Luke Vincent CORPORATE TRUST OFFICER CARDIAC CATH ORDERABLES Fi nal Result Performing Organization Address City/[facility]/ZIP Co de Phone Number [facility] * FELLER BUNCHER OPERATOR HEMODYNAMIC WAVEFORMS (04/20/2024 2:31 PM EST) 04/20/2024 2:31 PM EST Shweta Luke Kaur CORPORATE TRUST OFFICER CARDIAC CATH ORDERABLES Fi nal Result Performing Organization Address [facility] Co de Phone Number [facility] [address] [place] [phone] * (ABNORMAL) HEMOGLOBIN A1C (04/20/2024 6:39 AM EST) Only the most recent of2 resultswithin the time period is included. Hgb A1C 5.8(H) 4.2 - 5.6 % 04/20/2024 7:25 AM EST [employer] Est. Avg Glucose 120 mg/dL 04/20/2024 7:25 AM EST [facility] [facility] Blood VENOUS BLOOD / Unknown Venipuncture / Unknown 04/20/2024 6:39 AM EST 04/20/2024 6:58 AM EST Narrative [employer] - 04/20/2024 7:25 AM EST REFERENCE RANGE: Normal: 4.0-5.6% Pre-diabetes: 5.7-6.4% Provisional diagnosis of diabetes: >6.4% Hgb F>10% and anything which shortens red cell survival, such as hemolytic anemia, or unstable hemoglobin variants such as HbSS, HbSC, or HbCC, will lower the HbA1c value associated with a given level of glycemic control. Larry Guillen DO CHEMISTRY ORDERABLES Fin al Result Performing Organization Address City/[facility] Co de Phone Number [employer] [address] , [place] [address] * LIPID SCREEN (04/20/2024 6:39 AM EST) Only the most recent of4 resultswithin the time period is included. Cholesterol 155 <200 mg/dL 04/20/2024 7:33 AM EST [employer] Comment: < 200 Desirable 200 - 239 Borderline High >= 240 High Triglyceride 68 <150 mg/dL 04/20/2024 7:33 AM EST [employer] Comment: < 150 Normal 150 - 199 Borderline High 200 - 499 High >= 500 Very High HDL 65 >=40 mg/dL 04/20/2024 7:33 AM EST [employer] Comment: > 60 Optimal 40 - 60 Acceptable < 40 Low LDL Calculated 77 <100 mg/dL 04/20/2024 7:33 AM EST [employer] Comment: < 100 Optimal 100 - 129 Near or above optimal 130 - 159 Borderline High 160 - 189 High >= 190 Very High The National Institutes of Health (NIH) equation is used for all lipid panels that report calculated LDL (LDL-C). Non-HDL-C Calculated 90 <=129 mg/dL 04/20/2024 7:33 AM EST [employer] Comment: <130 Desirable 130-159 Above Desirable 160-189 Borderline High 190-219 High >= 220 Very High Fasting Specimen? Yes None 025 7:33 AM EST [facility] Blood VENOUS BLOOD / Unknown Venipuncture / Unknown 04/20/2024 6:39 AM EST 04/20/2024 6:58 AM EST us Larry Lyons I, CHEMISTRY ORDERABLES Fin al Result [employer] [address] [facility] , [address] [place] [phone] [facility] [address] [place] [address] * (ABNORMAL) TROPONIN-T HIGH SENSITIVITY 6 HR (04/20/2024 4:32 AM EST) ud-bPtprpmjr-L 6HR 52(H) <14 ng/L 04/20/2024 5:37 AM EST [employer] Comment:See the website sofiyao w for rule out [place] care pathway, conditions other than AMI that can cause elevated hs cTnT, and comparison of values from the 4th and 5th generation Ji tests. https://askmayoexpert.[facility].org/topic/clinical-answers/gnt-29129566/cpm-203 18297 hs-cTnT 6Hr Delta from Baseline 11 <12 ng/L 04/20/2024 5:37 AM EST [employer] Blood VENOUS BLOOD / Unknown Venipuncture / Unknown 04/20/2024 4:32 AM EST 04/20/2024 5:01 AM EST Narrative [employer] [facility] - 04/20/2024 5:37 AM EST Ingestion of rommel doses of biotin (>5 mg/day) taken within 8 hours of drawing blood sample can interfere with this immunoassay test. [facility] CHEMISTRY ORDERABLE S Final Result [facility] [employer] [address] [facility] [address], [place] [address] * (ABNORMAL) TROPONIN-T HIGH SENSITIVITY 2HR (04/20/2024 12:41 AM EST) [facility] sg-dSbpoufxb-E 2HR 48(H) <14 ng/L 04/20/2024 1:05 AM EST [facility] Comment:See the website Elevaate for rule out [place] care pathway, conditions other than AMI that can cause elevated hs cTnT, and comparison of values from the 4th and 5th generation Ji tests. https://askmayoexpert.[facility].org/topic/clinical-answers/gnt-55684391/cpm-203 16115 hs-cTnT 2Hr Delta from Baseline 7(H) <4 ng/L 04/20/2024 1:05 AM EST [facility] Blood VENOUS BLOOD / Unknown Venipuncture / Unknown 04/20/2024 12:41 AM EST 04/20/2024 12:43 AM EST Narrative [facility] - 04/20/2024 1:05 AM EST Ingestion of rommel doses of biotin (>5 mg/day) taken within 8 hours of drawing blood sample can interfere with this immunoassay test. [facility] CHEMISTRY ORDERABLE S Final Result Performing Organization Address City/[facility]/ZIP Co de Phone Number [facility] [address] [place] [address] * XR CHEST AP PORTABLE (04/19/2024 11:02 PM EST) Anatomical Region Laterality Modality Chest Radiographic Minerva ging 04/19/2024 11:0 2 PM EST Impressions 04/19/2024 11:13 PM EST No acute findings. Note: Radiology results need to be interpreted within a comprehensive clinical context. If you have questions about the radiology report, please contact the office of the ordering clinician. Narrative 04/19/2024 11:13 PM EST CLINICAL HISTORY: -chest pain. COMPARISON: 01/17/2021. TECHNIQUE: XR CHEST AP PORTABLE on 04/19/2024 11:02 PM. FINDINGS: The lungs are clear. There is no pneumothorax or pleural effusion. The heart size and pulmonary vascularity are normal. The upper abdomen and osseous structures are unremarkable. Procedure Note Ga Lewis MD - 04/19/2024 CLINICAL HISTORY: -chest pain. COMPARISON: 01/17/2021. TECHNIQUE: XR CHEST AP PORTABLE on 04/19/2024 11:02 PM. FINDINGS: The lungs are clear. There is no pneumothorax or pleuraleffusion. The heart size and pulmonary vascularity are normal. The upper abdomen andosseous structures are unremarkable. IMPRESSION: No acute findings. Note: Radiology results need to be interpreted within a comprehensiveclinical context. If you have questions about the radiology report, please contactthe office of the ordering clinician. [facility] IMG DIAGNOSTIC IMAG ING ORDERABLES Final Result * (ABNORMAL) TROPONIN-T HIGH SENSITIVITY BASELINE W/ REFLEX (04/19/2024 10:51 PM EST) ee-cUuzgocnd-I 41(H) <14 ng/L 04/19/2024 11:18 PM EST [facility] Comment:See the website sofiyao w for rule out [place] care pathway, conditions other than AMI that can cause elevated hs cTnT, and comparison of values from the 4th and 5th generation Ji tests. https://askmayoexpert.[facility].org/topic/clinical-answers/gnt-98516022/cpm-203 21164 Blood VENOUS BLOOD / Unknown Venipuncture / Unknown 04/19/2024 10:51 PM EST 04/19/2024 10:54 PM EST Narrative [facility] - 04/19/2024 11:18 PM EST Ingestion of rommel doses of biotin (>5 mg/day) taken within 8 hours of drawing blood sample can interfere with this immunoassay test. [facility] CHEMISTRY ORDERABLE S Final Result [facility] [address] [place] [phone] * CBC (04/19/2024 10:51 PM EST) Only the most recent of2 resultswithin the time period is included. WBC 9.3 3.7 - 10.3 x10(3)/mcL 04/19/2024 10:57 PM EST [facility] RBC 4.92 3.90 - 5.20 x10(6)/mcL 04/19/2024 10:57 PM [facility] Hgb 14.3 11.2 - 15.7 g/dL 04/19/2024 10:57 PM [facility] Hct 42.5 34.0 - 45.0 % 04/19/2024 10:57 PM [facility] MCV 86.4 80.0 - 100.0 fL 04/19/2024 10:57 PM [facility] MCH 29.1 26.0 - 34.0 pg 04/19/2024 10:57 PM [facility] MCHC 33.6 30.7 - 35.5 g/dL 04/19/2024 10:57 PM [facility] RDW 12.6 <=14.9 % 04/19/2024 10:57 PM [facility] Platelet 178 155 - 369 x10(3)/mcL 04/19/2024 10:57 PM [facility] MPV 9.8 8.8 - 12.5 fL 04/19/2024 10:57 PM [facility] Blood VENOUS BLOOD / Unknown Venipuncture / Unknown 04/19/2024 10:51 PM EST 04/19/2024 10:54 PM EST [facility] HEMATOLOGY ORDERABL ES Final Result [facility] [address] [place] [phone] * (ABNORMAL) BASIC METABOLIC PANEL (04/19/2024 10:51 PM EST) Only the most recent of2 resultswithin the time period is included. Sodium 138 136 - 145 mmol/L 04/19/2024 11:15 PM EST [facility] Potassium 4.3 3.5 - 5.0 mmol/L 04/19/2024 11:15 PM EST [facility] Chloride 104 98 - 107 mmol/L 04/19/2024 11:15 PM EST [facility] Total CO2 26 22 - 29 mmol/L 04/19/2024 11:15 PM EST [facility] Anion Gap 8 7 - 16 mmol/L 04/19/2024 11:15 PM EST [facility] Calcium 9.3 8.8 - 10.4 mg/dL 04/19/2024 11:15 PM EST [facility] Glucose Lvl 118(H) 70 - 99 mg/dL 04/19/2024 11:15 PM EST [facility] BUN 26(H) 8 - 23 mg/dL 04/19/2024 11:15 PM [facility] Creatinine 0.78 0.51 - 1.30 mg/dL 04/19/2024 11:15 PM EST [facility] eGFR (CKD-EPIcr 2020) 81 >=60 mL/min/1.7 3 m2 04/19/2024 11:15 PM EST [facility] Comment:Estimated GFR was ca lculated using the CKD-EPIcr (2020) equation refit without race. The equation is recommended by the National Kidney Foundation - [place] [employer] of Nephrology Task Force. Blood VENOUS BLOOD / Unknown Venipuncture / Unknown 04/19/2024 10:51 PM EST 04/19/2024 10:54 PM EST [facility] CHEMISTRY ORDERABLE S Final Result [facility] [address] [place] [address] * EK EKG 12 LEAD (04/19/2024 10:26 PM EST) Anatomical Region Laterality Modality Electrocardiogra phy 04/19/2024 10:3 0 PM EST Impressions 04/20/2024 9:[address] 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 Electronically Signed On 04-20-2024 09:52:35 EST by Milton Womack MD Narrative Procedure Note Milton Womack MD - 04/20/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 Electronically Signed On 04-20-2024 09:52:35 EST by Milton Womack MD Le Olvera MD IMG ECG ORDERABLES Final Result * BILL TG CL (02/13/2024 5:02 PM EST) Only the most recent of3 resultswithin the time period is included. [id number]_CL-ARUP Billed 8:20 PM EST [employer] Comment: Performed By: [facility] [address] [place] [address] Network Systems Analyst: Roger Barnes MD, PhD CLIA Number: [id number] Blood VENOUS BLOOD / Unknown Venipuncture / Unknown 02/13/2024 5:02 PM EST 02/13/2024 5:02 PM EST us Susan Mike MD IMMUNOLOGY ORDERABLES Fi nal Result [employer] [address] [place] [address] * (ABNORMAL) THYROGLOBULIN AND TG AB REFLEX MONITOR-REF LAB (02/13/2024 5:02 PM EST) Only the most recent of8 resultswithin the time period is included. Pathologist [facility] Thyroglobulin 0.1(L) 1.3 - 31.8 ng/mL 02/14/2024 8:[address] [facility] Comment: INTERPRETIVE INFORMATION: Thyroglobulin, Serum or Plasma Specimens negative for thyroglobulin antibodies (TgAb) are tested for thyroglobulin (Tg) by chemiluminescent immunoassay (ALEXI) using the [employer] Access DxI method. Specimens with TgAb results above the upper reference limit are tested for Tg by high-performance liquid chromatography-tandem mass spectrometry (LC-MS/MS). Results obtained with different test methods or kits cannot be used interchangeably. Tg results, regardless of concentration, should not be interpreted as absolute evidence for the presence or absence of papillary or follicular thyroid cancer. Tg testing is not recommended for use as a screening procedure to detect the presence of thyroid cancer in the general population. Thyroglob Ab <0.9 0.0 - 4.0 IU/mL 02/14/2024 8:[address] [facility] Comment: INTERPRETIVE INFORMATION: Thyroglobulin Antibody A value of 4.0 IU/mL or less indicates a negative result for thyroglobulin antibodies. The Thyroglobulin Antibody assay is being performed using the [employer] Access DxI method. THYROGLOBULIN LC-MS/MS Not Applicable 1.3 - 31.8 ng/mL 02/14/2024 8:[address] [facility] Comment: INTERPRETIVE INFORMATION: Thyroglobulin by LC-MS/MS, Serum/Plasma Lower limit of detection for Thyroglobulin by LC-MS/MS is 0.5 ng/mL. This test was developed and its performance characteristics determined by [facility]. It has not been cleared or approved by the [place] Food and Drug Administration. This test was performed in a CLIA certified laboratory and is intended for clinical purposes. Performed By: [facility] [address] [place] [address] Network Systems Analyst: Roger Barnes MD, PhD CLIA Number: [id number] Blood VENOUS BLOOD / Unknown Venipuncture / Unknown 02/13/2024 5:02 PM EST 02/13/2024 5:02 PM EST Susan Mike MD CHEMISTRY ORDERABLES Fin al Result Performing Organization Address [facility] de Phone Number [employer] [address] [place] [address] * (ABNORMAL) T3 FREE (02/13/2024 5:02 PM EST) T3 Free 1.96(L) 2.00 - 4.40 pg/mL 02/13/2024 8:45 PM EST [employer] Blood VENOUS BLOOD / Unknown Venipuncture / Unknown 02/13/2024 5:02 PM EST 02/13/2024 5:02 PM EST Narrative [employer] - 02/13/2024 8:45 PM EST Ingestion of rommel doses of biotin (>5 mg/day) taken within 8 hours of drawing blood sample can interfere with this immunoassay test. Susan Mike MD CHEMISTRY ORDERABLES Fin al Result Performing Organization Address [facility] Co de Phone Number [employer] [address] [place] [address] , [place] [address] * T4, TOTAL (THYROXINE) -REF LAB (02/13/2024 5:02 PM EST) T4 7.86 4.50 - 11.70 ug/dL 02/15/2024 12:14 AM EST [employer] Comment: Performed By: [facility] [address] [place] [address] Network Systems Analyst: Roger Barnes MD, PhD CLIA Number: [id number] Blood VENOUS BLOOD / Unknown Venipuncture / Unknown 02/13/2024 5:02 PM EST 02/13/2024 5:02 PM EST us Susan Mike MD CHEMISTRY ORDERABLES Fin al Result [employer] [address] [place] [address] * MM MAMMO DIGITAL FRANCISCO SCREEN BILAT (10/10/2023 10:01 AM EDT) Only the most recent of3 resultswithin the time period is included. Anatomical Region Laterality Modality Breast Bilateral Mammography 10/10/2023 10:0 1 AM EDT Impressions 10/10/2023 12:35 PM EDT Negative (YES-Lrvrmrvm-5) RECOMMENDATION: Routine Screening Mammogram in 1 Year COMMENTS: Narrative 10/10/2023 12:35 PM EDT EXAM: MM MAMMO DIGITAL FRANCISCO SCREEN BILAT EXAM DATE: 10/10/2023 10:01 AM INDICATION: Z12.31-Encounter for screening mammogram for malignant neoplasm of [id number]-EPY-42-CM COMPARISON STUDIES: Compared with prior studies the most recent being 07/08/2021 and 08/30/2016 TISSUE DENSITY: The breasts are heterogeneously dense, which may obscure small masses. FINDINGS: No mammographic evidence of malignancy. Procedure Note Mikel Ramírez MD - 10/10/2023 EXAM: MM MAMMO DIGITAL FRANCISCO SCREEN BILAT EXAM DATE: 10/10/2023 10:01 AM INDICATION: Z12.31-Encounter for screening mammogram for malignantneoplasm of soksgc-XFX-25-CM COMPARISON STUDIES: Compared with prior studies the most recent being07/08/2021 and 08/30/2016 TISSUE DENSITY: The breasts are heterogeneously dense, which may obscuresmall masses. FINDINGS: No mammographic evidence of malignancy. IMPRESSION: Negative (RLH-Eoieabzl-7) RECOMMENDATION: Routine Screening Mammogram in 1 Year COMMENTS: José Priest MD IMG MAMMOGRAPHY ORDERABLES Final Result * PATHOLOGY TISSUE REQUEST (01/14/2023 4:49 PM EST) CASE REPORT Surgical Pathology Case: [id number] Authorizing Provider: Jared Cedeno MD Collected: 01/14/2023 1649 Ordering Location: [facility] Received: 01/14/20232007 Pathologist: Mahesh Rodriguez MD Specimen: Large Intestine, Appendix, appendix 01/18/2023 10:07 AM EST [facility] FINAL DIAGNOSIS Appendix, appendectomy: - Acute appendicitis with serositis. 01/18/2023 10:07 AM [facility] at 1006 EST GROSS DESCRIPTION Received in formalin and labeled with the patient's name, medical record number, and appendix is a 4.9 cm in length by 0.8 to 1.0 cm in diameter vermiform appendix with attached mesoappendix and purple-coleman, roughened serosa with adherent mcgrath-coleman exudate and fibrous adhesions. The wall averages 0.1 cm in thickness and the lumen contains brown fecal material. The mucosa is purple-mcgrath to coleman, erythematous and mottled. No distinct perforations or masses are identified. 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 ZN 01/17/2023 9:15 AM 01/18/2023 10:07 AM EST [facility] MICROSCOPIC DESCRIPTION Microscopic examination is performed and the findings corroborate the diagnosis. 01/18/2023 10:07 AM [facility] EMBEDDED IMAGES 01/18/2023 10:07 AM EST [facility] Tissue APPENDIX SPECIMEN / Unknown 01/14/2023 4:49 PM EST 01/14/2023 8:08 PM EST Jared Cedeno MD PATHOLOGY ORDERABLES Final R esult Performing Organization Address [facility] Co de Phone Number [facility] [address] [place] [address] * INTRAOP AIRWAY PLACEMENT (01/14/2023 4:24 PM EST) Narrative [facility] - 01/14/2023 4:24 PM EST Olivia Lala CRNA 01/14/2023 4:33 PM Intraop Airway Placement: Date/Time: 01/14/2023 4:24 PM Induction type: IV and Rapid sequence (N/V) Mask size: Standard adult Pre-Oxygenation: Standard Mask ventilation: Not attempted Mask ventilation improved by: Head adjustment Technique: Video laryngoscope Laryngoscope blade: Cano Blade size: 3 Grade view: I Airway type: ETT- cuffed Intubation assist devices: Stylet 14fr Airway location: Oral Device size: 7mm Secured at: 21 cm Secured by: Tape Measured from: Lips Placement verified: Auscultation, End tidal CO2 and Symmetric chest wall motion Condition: Unchanged and Atraumatic Insertion attempts: 1 Attempt 1 by: Aaron Title: ORCHARD PRUNER Alon Colon DO [place] ANESTHESIA Final Resul t Performing Organization Address [facility] de Phone Number [place] [phone] * CT ABD PEL ED FAST W CONTRAST (01/14/2023 7:54 AM EST) Anatomical Region Laterality Modality Abdomen, Pelvis Computed Tomogra phy 01/14/2023 7:54 AM EST Impressions 01/14/2023 8:25 AM EST Findings are consistent acute appendicitis with some periappendiceal fat stranding. No definite abscess. Small amount of free fluid in the pelvis. Extensive diverticulosis of the sigmoid colon without definite evidence of diverticulitis. - Note: Radiology results need to be interpreted within a comprehensive clinical context. If you have questions about the radiology report, please contact the office of the ordering clinician. Narrative 01/14/2023 8:[address] ABDOMEN AND PELVIS WITH CONTRAST (FAST), 01/14/2023 7:54 AM CLINICAL HISTORY: -RLQ abdominal pain (Age >= 14y). COMPARISON: None. PROCEDURE COMMENTS: Multi-detector CT scanning of the abdomen and pelvis with multiplanar reformatting per expedited protocol. Isovue 370 IV contrast given as recorded in EPIC. Dose 1 : CT DLP Total : 405.21 mGycm DLP Spiral Max : 400.74 mGycm Maximum CTDI Vol : 9.09 mGy SSDE : 6.7266 mGy SSDE Diameter : 43.7 cm SSDE Source : Lat FINDINGS: LOWER THORAX: Some linear densities at both lung bases. Liver pancreas and spleen are unremarkable. Mild prominence of pancreatic duct. No adrenal masses. Cortical cyst medial upper pole right kidney. No hydronephrosis. No renal calculi. Diastases rectus small umbilical hernia containing fat. There is a dilated appendix in the right lower quadrant with some surrounding mild strandy inflammatory changes in the adjacent fat. Findings are suspect for acute appendicitis. No definite abscess. There is a small amount of free fluid in the right left pelvis. There is extensive diverticulosis of the sigmoid colon without evidence diverticulitis. Large small bowel loops are nondilated. Procedure Note Sameer Holguin III, MD - 01/14/2023 CT ABDOMEN AND PELVIS WITH CONTRAST (FAST), 01/14/2023 7:54 AM CLINICAL HISTORY: -RLQ abdominal pain (Age >= 14y). COMPARISON: None. PROCEDURE COMMENTS: Multi-detector CT scanning of the abdomen and pelviswith multiplanar reformatting per expedited protocol. Isovue 370 IV contrastgiven as recorded in EPIC. Dose 1 : CT DLP Total : 405.21 mGycm DLP Spiral Max : 400.74 mGycm Maximum CTDI Vol : 9.09 mGy SSDE : 6.7266 mGy SSDE Diameter : 43.7 cm SSDE Source : Lat FINDINGS: LOWER THORAX: Some linear densities at both lung bases. Liver pancreas and spleen are unremarkable. Mild prominence of pancreaticduct. No adrenal masses. Cortical cyst medial upper pole right kidney. No hydronephrosis. No renal calculi. Diastases rectus small umbilical hernia containing fat. There is a dilated appendix in the right lower quadrant with somesurrounding mild strandy inflammatory changes in the adjacent fat. Findings aresuspect for acute appendicitis. No definite abscess. There is a small amount of freefluid in the right left pelvis. There is extensive diverticulosis of the sigmoid colon without evidence diverticulitis. Large small bowel loops are nondilated. IMPRESSION: Findings are consistent acute appendicitis with some periappendiceal fat stranding. No definite abscess. Small amount of freefluid in the pelvis. Extensive diverticulosis of the sigmoid colon withoutdefinite evidence of diverticulitis. - Note: Radiology results need to be interpreted within a comprehensiveclinical context. If you have questions about the radiology report, please contactthe office of the ordering clinician. Hayley Waterman MD [facility] [place] ORDERABLES Final Res ult * (ABNORMAL) URINALYSIS REFLEX (01/14/2023 6:59 AM EST) UA Color Yellow 01/14/2023 7:32 AM EST [facility] UA Appear Clear Clear 01/14/2023 7:32 AM EST [facility] UA Glucose Negative Negative mg/dL 01/14/2023 7:32 AM EST [facility] UA Ketones Negative Negative mg/dL 01/14/2023 7:32 AM EST [facility] UA Blood Trace-Lysed (A) Negative 01/14/2023 7:32 AM [facility] UA pH 7.0 5.0 - 8.0 pH 01/14/2023 7:32 AM EST [facility] UA Protein Negative Negative mg/dL 01/14/2023 7:32 AM [facility] UA Urobilinogen 0.2 <=1 mg/dL 7:32 AM [facility] UA Bili Negative Negative 01/14/2023 7:32 AM EST [facility] UA Nitrite Negative Negative 01/14/2023 7:32 AM [facility] UA Leuk Est Small(A) Negative 01/14/2023 7:32 AM [facility] UA Spec Grav 1.015 1.001 - 1.035 no units 01/14/2023 7:32 AM EST [facility] Comment:Reference range padilla d for random specimens only. UA WBC 2 0 - 4 /HPF 01/14/2023 7:32 AM EST [facility] U[facility] RBC <1 0 - 3 /HPF 01/14/2023 7:32 AM EST [facility] UA Squam Epi 3+ /LPF 01/14/2023 7:32 AM EST [facility] Urine URINE SPECIMEN COLLECTION, CLEAN CATCH / Unknown 01/14/2023 6:59 AM EST 01/14/2023 7:01 AM EST Hayley Waterman MD URINE ORDERABLES Final Resu lt Performing Organization Address [facility] de Phone Number [facility] [address] [place] [address] * EXTRA COLEMAN URINE CX (01/14/2023 6:59 AM EST) Urine URINE SPECIMEN COLLECTION, CLEAN CATCH / Unknown 01/14/2023 6:59 AM EST 01/14/2023 7:01 AM EST Hayley Waterman MD [facility]BIOLOGY [facility] Final Result Performing Organization Address [facility] de Phone Number [facility] [address] [place] [address] * (ABNORMAL) URINE CULTURE (NO STAIN) (01/14/2023 6:59 AM EST) Culture Positive Growth(A) 01/17/2023 11:39 AM EST [facility] Culture 60,000 CFU/mL Pseudomonas aeruginosa SUSCEPTIBI LITY RESULT 01/17/2023 11:39 AM EST [facility] Urine URINE SPECIMEN COLLECTION, CLEAN CATCH / Unknown 01/14/2023 6:59 AM EST 01/14/2023 7:32 AM EST Narrative Organism Antibiotic Method Susceptibility Pseudomonas aeruginosa Amikacin SUSCEPTIBILITY RESULT <=16 ug/mL: Susceptible Pseudomonas aeruginosa Amoxicillin/Clavulanat e SUSCEPTIBILITY RESULT Pseudomonas aeruginosa Ampicillin SUSCEPTIBILITY RESULT Pseudomonas aeruginosa Ampicillin/Sulbactam SUSCEPTIBILITY RESULT Pseudomonas aeruginosa Aztreonam SUSCEPTIBILITY RESULT <=4 ug/mL: Susceptible Pseudomonas aeruginosa Cefazolin SUSCEPTIBILITY RESULT Pseudomonas aeruginosa Cefepime SUSCEPTIBILITY RESULT <=2 ug/mL: Susceptible Pseudomonas aeruginosa Cefotaxime SUSCEPTIBILITY RESULT Pseudomonas aeruginosa Cefoxitin SUSCEPTIBILITY RESULT Pseudomonas aeruginosa Ceftazidime SUSCEPTIBILITY RESULT <=1 ug/mL: Susceptible Pseudomonas aeruginosa Ceftazidime/Avibactam SUSCEPTIBILITY RESULT Pseudomonas aeruginosa Ceftolozane/Tazobactam SUSCEPTIBILITY RESULT Pseudomonas aeruginosa Ceftriaxone SUSCEPTIBILITY RESULT Pseudomonas aeruginosa Cefuroxime SUSCEPTIBILITY RESULT Pseudomonas aeruginosa Ciprofloxacin SUSCEPTIBILITY RESULT <=0.25 ug/mL: Susceptible Pseudomonas aeruginosa Ertapenem SUSCEPTIBILITY RESULT Pseudomonas aeruginosa Gentamicin SUSCEPTIBILITY RESULT <=2 ug/mL: Susceptible Pseudomonas aeruginosa Imipenem SUSCEPTIBILITY RESULT <=1 ug/mL: Susceptible Pseudomonas aeruginosa Levofloxacin SUSCEPTIBILITY RESULT <=0.5 ug/mL: Susceptible Pseudomonas aeruginosa Meropenem SUSCEPTIBILITY RESULT <=1 ug/mL: Susceptible Pseudomonas aeruginosa Meropenem/Vaborbactam SUSCEPTIBILITY RESULT Pseudomonas aeruginosa Minocycline SUSCEPTIBILITY RESULT Pseudomonas aeruginosa Moxifloxacin SUSCEPTIBILITY RESULT Pseudomonas aeruginosa Nitrofurantoin SUSCEPTIBILITY RESULT Pseudomonas aeruginosa Piperacillin/Tazobacta m SUSCEPTIBILITY RESULT <=8 ug/mL: Susceptible Pseudomonas aeruginosa Tetracycline SUSCEPTIBILITY RESULT Pseudomonas aeruginosa Tigecycline SUSCEPTIBILITY RESULT Pseudomonas aeruginosa Tobramycin SUSCEPTIBILITY RESULT <=2 ug/mL: Susceptible Pseudomonas aeruginosa Trimethoprim/Sulfameth oxazole SUSCEPTIBILITY RESULT us Hayley Waterman MD MICROBIOLOGY - GENERAL [facility]DJ[facility] Final Result Performing Organization Address City/State/[facility] Co de Phone Number [facility] [place] [employer], [address], [place] [address] * (ABNORMAL) CBC WITH DIFF (01/14/2023 6:23 AM EST) Only the most recent of5 resultswithin the time period is included. WBC 17.9(H) 3.7 - 10.3 x10(3)/mcL 01/14/2023 6:30 AM EST [facility] RBC 5.11 3.90 - 5.20 x10(6)/mcL 01/14/2023 6:30 AM EST [facility] Hgb 14.8 11.2 - 15.7 g/dL 01/14/2023 6:30 AM EST [facility] Hct 44.6 34.0 - 45.0 % 01/14/2023 6:30 AM EST [facility] MCV 87.3 80.0 - 100.0 fL 01/14/2023 6:30 AM [facility] MCH 29.0 26.0 - 34.0 pg 01/14/2023 6:30 AM [facility] MCHC 33.2 30.7 - 35.5 g/dL 01/14/2023 6:30 AM [facility] RDW 12.6 <=14.9 % 01/14/2023 6:30 AM [facility] Platelet 234 155 - 369 x10(3)/mcL 01/14/2023 6:30 AM [facility] MPV 9.3 8.8 - 12.5 fL 01/14/2023 6:30 AM [facility] Neut Percent 88.0 % 01/14/2023 6:30 AM [facility] Comment:Neutrophils equals s egs plus bands Imm Gran% 0.3 % 01/14/2023 6:30 AM [facility] Comment:Automated count of m etamyelocytes, myelocytes and promyelocytes. Lymph Percent 6.0 % 01/14/2023 6:30 AM [facility] [place] Percent 5.3 % 01/14/2023 6:30 AM [facility] Eos Percent 0.1 % 01/14/2023 6:30 AM [facility] Baso Percent 0.3 % 01/14/2023 6:30 AM [facility] Neut # 15.8(H) 1.6 - 6.1 x10(3)/mcL 01/14/2023 6:30 AM [facility] Comment:Neutrophils equals s egs plus bands IMMGRAN# 0.1 0.0 - 0.1 x10(3)/mcL 01/14/2023 6:30 AM [facility] Comment:Automated count of m etamyelocytes, myelocytes and promyelocytes. An absolute IG <0.1 is reported as 0.0. Lymph # 1.1(L) 1.2 - 3.9 x10(3)/mcL 01/14/2023 6:30 AM [facility] Roosevelt # 0.9 0.3 - 0.9 x10(3)/mcL 01/14/2023 6:30 AM EST [facility] Eos# 0.0 0.0 - 0.5 x10(3)/mcL 01/14/2023 6:30 AM EST [facility] Baso # 0.1 0.0 - 0.1 x10(3)/mcL 01/14/2023 6:30 AM EST [facility] Blood VENOUS BLOOD / Unknown Venipuncture / Unknown 01/14/2023 6:23 AM EST 01/14/2023 6:26 AM EST us Hayley Waterman MD HEMATOLOGY ORDERABLES Final Result Performing Organization Address City/[facility]/ZIP Co de Phone Number [address] [address] * LIPASE LEVEL (01/14/2023 6:23 AM EST) Lipase Lvl 37 13 - 60 U/L 01/14/2023 6:47 AM EST [facility] Blood VENOUS BLOOD / Unknown Venipuncture / Unknown 01/14/2023 6:23 AM EST 01/14/2023 6:26 AM EST us Hayley Waterman MD CHEMISTRY ORDERABLES Final Result Performing Organization Address [facility]/ZIP Co de Phone Number [address] [address] * (ABNORMAL) COMPREHENSIVE METABOLIC PANEL (01/14/2023 6:23 AM EST) Only the most recent of4 resultswithin the time period is included. Sodium 133(L) 136 - 145 mmol/L 01/14/2023 6:47 AM EST [facility] Potassium 4.2 3.5 - 5.0 mmol/L 01/14/2023 6:47 AM EST [facility] Chloride 98 98 - 107 mmol/L 01/14/2023 6:47 AM EST [facility] Total CO2 26 22 - 29 mmol/L 01/14/2023 6:47 AM [facility] Anion Gap 9 7 - 16 mmol/L 01/14/2023 6:47 AM [facility] Calcium 9.6 8.8 - 10.4 mg/dL 01/14/2023 6:47 AM [facility] Glucose Lvl 142(H) 82 - 100 mg/dL 01/14/2023 6:47 AM EST [facility] BUN 22 8 - 23 mg/dL 01/14/2023 6:47 AM [facility] Creatinine 0.69 0.51 - 1.30 mg/dL 01/14/2023 6:47 AM [facility] Albumin 4.2 3.2 - 4.6 gm/dL 01/14/2023 6:47 AM [facility] Total Protein 7.2 6.4 - 8.3 gm/dL 01/14/2023 6:47 AM [facility] Bili Total 0.3 0.2 - 1.3 mg/dL 01/14/2023 6:47 AM [facility] ALT 20 <=41 U/L 01/14/2023 6:47 AM [facility] AST 22 <=40 U/L 01/14/2023 6:47 AM [facility] Alk Phos 104 36 - 123 U/L 01/14/2023 6:47 AM [facility] eGFR (CKD-EPIcr 2020) 94 >=60 mL/min/1.7 3 m2 01/14/2023 6:47 AM EST [facility] Comment:Estimated GFR was ca lculated using the CKD-EPIcr (2020) equation refit without race. The equation is recommended by the National Kidney Foundation - [place] [employer] of Nephrology Task Force. Blood VENOUS BLOOD / Unknown Venipuncture / Unknown 01/14/2023 6:23 AM EST 01/14/2023 6:26 AM EST us Hayley Waterman MD CHEMISTRY ORDERABLES Final Result [facility] [address] [facility] [place] [address] * XR CHEST PA AND LATERAL (01/17/2021 10:17 AM EST) Anatomical Region Laterality Modality Chest Radiographic Minerva ging 01/17/2021 10:1 7 AM EST Impressions 01/17/2021 10:21 AM EST No acute findings. Note: Radiology results need to be interpreted within a comprehensive clinical context. If you have questions about the radiology report, please contact the office of the ordering clinician. Narrative 01/17/2021 10:21 AM EST CLINICAL HISTORY: J06.9-Acute upper respiratory infection, fyneyhxvwcd-CLJ-24-CM R05.9-Cough, pvendwktwvs-JER-94-CM. COMPARISON: None. TECHNIQUE: XR CHEST PA AND LATERAL on 01/17/2021 10:17 AM. FINDINGS: The lungs are clear. There is no pneumothorax or pleural effusion. The heart size and pulmonary vascularity are normal. The upper abdomen and osseous structures are unremarkable. Procedure Note Ga Lewis MD - 01/17/2021 CLINICAL HISTORY: J06.9-Acute upper respiratory infection,wplcwedvdfz-QDP-63-CM R05.9-Cough, lrjtgftkhbm-FMY-00-CM. COMPARISON: None. TECHNIQUE: XR CHEST PA AND LATERAL on 01/17/2021 10:17 AM. FINDINGS: The lungs are clear. There is no pneumothorax or pleuraleffusion. The heart size and pulmonary vascularity are normal. The upper abdomen andosseous structures are unremarkable. IMPRESSION: No acute findings. Note: Radiology results need to be interpreted within a comprehensiveclinical context. If you have questions about the radiology report, please contactthe office of the ordering clinician. Eulogio Young MD IMG DIAGNOSTIC IMAGING ORDERABLE S Final Result * POCT INFLUENZA A/B (01/17/2021 10:04 AM EST) Influenza A Ag Negative SEP OFFICE Influenza B Ag Negative SEP OFFICE Lot Number [id number] SEP OFFICE Expiration Date 10/13/21 SEP OFFICE Flu Blue Control Line (positive internal control) Yes SEP OFFICE Clear Background (negative internal control) Yes Yes/No SEP OFFICE 01/17/2021 10:0 4 AM EST Eulogio Young MD POINT OF CARE TEST ORDERABLES Fi nal Result SEP OFFICE * (ABNORMAL) POCT IDALIA SARS ANTIGEN (11/03/2020 7:40 PM EDT) SARS Antigen Positive(A ) Negative SEP OFFICE Lot Number [id number] SEP OFFICE Expiration Date SEP OFFICE SeriAl # SEP OFFICE Control Line Yes YES/NO SEP OFFICE 11/03/2020 7:40 PM EDT Linda Real PA-C POINT OF CARE TEST ORDE RABLES Final Result Performing Organization Address City/[facility]/ZIP Co de Phone Number SEP OFFICE * MRI BRAIN ATTN IACS W WO CONTRAST (05/16/2020 10:36 AM EDT) Anatomical Region Laterality Modality Magnetic Resonan ce 05/16/2020 10:3 6 AM EDT Impressions 05/16/2020 12:09 PM EDT No vestibular schwannoma or other retrocochlear abnormality. 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 COMPARISON: None. PROCEDURE COMMENTS: Multiplanar multiecho MR imaging focusing on the internal auditory canals and brainstem with and without IV gadolinium administration. Additional survey sequences of the whole brain also performed. 15 mL Multihance given. FINDINGS: INTERNAL AUDITORY CANALS AND CEREBELLOPONTINE ANGLES: No mass. Seventh and eighth cranial nerves are normal. COCHLEA, VESTIBULE, SEMICIRCULAR CANALS: Normal signal and morphology. BRAINSTEM AND CEREBELLUM: Normal. REMAINING BRAIN PARENCHYMA: No acute infarct or hemorrhage. No mass effect or herniation. Signal intensities are within normal limits for age. VENTRICLES/EXTRA-AXIAL SPACES: No hydrocephalus or extra-axial fluid collections. ABNORMAL ENHANCEMENT: None. OTHER: None. Procedure Note Ben Keen MD - 05/16/2020 MRI BRAIN ATTN IACS W WO CONTRAST 05/16/2020 10:36 AM CLINICAL HISTORY: H91.22-Sudden idiopathic hearing loss, vgstjrq-AAR-96-CM H93.12-Tinnitus, left vaf-VRO-37-CM H90.42-Sensorineural hearing loss, unilateral, left ear, withunrestricted hearing on the contralateral gpsd-YZZ-77-CM. COMPARISON: None. PROCEDURE COMMENTS: Multiplanar multiecho MR imaging focusing on theinternal auditory canals and brainstem with and without IV gadoliniumadministration. Additional survey sequences of the whole brain also performed. 15 mLMultihance given. FINDINGS: INTERNAL AUDITORY CANALS AND CEREBELLOPONTINE ANGLES: No mass. Seventhand eighth cranial nerves are normal. COCHLEA, VESTIBULE, SEMICIRCULAR CANALS: Normal signal and morphology. BRAINSTEM AND CEREBELLUM: Normal. REMAINING BRAIN PARENCHYMA: No acute infarct or hemorrhage. No mass effector herniation. Signal intensities are within normal limits for age. VENTRICLES/EXTRA-AXIAL SPACES: No hydrocephalus or extra-axial fluid collections. ABNORMAL ENHANCEMENT: None. OTHER: None. IMPRESSION: No vestibular schwannoma or other retrocochlear abnormality. - us Severiano Guerrero MD IMG MRI ORDERABLES Final Resul t * SCANNED LABS (11/15/2018 10:21 AM EDT) Only the most recent of8 resultswithin the time period is included. 11/15/2018 10:2 1 AM EDT us Unknown Unknown HEMATOLOGY ORDERABLES Final Resu lt * PRODUCT DEVELOPMENT WORKER CYTOLOGY REQUEST (PAP ONLY) (07/28/2017 12:00 PM EDT) CASE REPORT Gynecologic Cytology Report Case: [id number] Authorizing Provider: Keyonna Goss, Collected: 07/28/2017 Nasim OJNES [facility]: 07/28/2017 1200 First Screen: Randal Vidal CT Specimen: LIQUID-BASED PAP - CERVICAL, Cervix 07/29/2017 10:30 AM EDT [facility] PAP FINAL DIAGNOSIS Negative for intraepithelial lesion or malignancy 07/29/2017 10:30 AM EDT [facility] at 1030 EDT MICROSCOPIC DESCRIPTION Microscopic examination is performed and the findings corroborate the diagnosis. 07/29/2017 10:30 AM EDT [facility] PAP SMEAR ADEQUACY Satisfactory for evaluation 07/29/2017 10:30 AM EDT [facility] ENDOCERVICAL T-ZONE Transformation zone present 07/29/2017 10:30 AM EDT [facility] EMBEDDED IMAGES 8 10:30 AM EDT [facility] PAP DISCLAIMER The Pap Smear is a screening test that aids in the detection of cervical cancer and cancer precursors. Both false positive and false negative results can occur. The test should be used at regular intervals, and positive results should be confirmed before definitive therapy. Processed using the ThinPrep Floor Broker Automated cytology screening device (Tapingo). 07/29/2017 10:30 AM EDT [facility] Thin Prep SPECIMEN FROM UTERINE CERVIX / Unknown 07/28/2017 12:00 PM EDT 07/28/2017 12:00 PM EDT us Keyonna Goss MD CYTOLOGY ORDERABLES Final Result [facility] [address] [place] [address] * VAGINAL PANEL (07/28/2017 12:00 PM EDT) Chelsi Species DNA probe Negative Negative 07/30/2017 8:52 AM EDT [employer] Comment: Performed by [employer], [address] [place] [id number] [email or web address], Robert Lucero MD, Lab. Director Gardnerella Vaginalis DNAprobe Negative Negative 07/30/2017 8:52 AM EDT [employer] Trichomonas Vaginalis DNA probe Negative Negative 07/30/2017 8:52 AM EDT [email or web address] Comment: INTERPRETIVE DATA: Vaginal Pathogen Panel by DNA Probe All test results should be correlated with clinical history. Swab SPECIMEN FROM VAGINA / Unknown 07/28/2017 12:00 PM EDT 07/28/2017 12:00 PM EDT Keyonna Goss MD MICROBIOLOGY - GENER AL ORDERABLES Final Result Performing Organization Address [facility] de Phone Number [employer] [address] [place] [address] * HPV HIGH RISK WITH REFLEX TO GENOTYPE (07/28/2017 12:00 PM EDT) HPV HR Reflex Not Detected Not Detected 018 12:06 PM EDT [facility] [employer] Thin [employer] SPECIMEN FROM UTERINE CERVIX / Unknown 07/28/2017 12:00 PM EDT 07/28/2017 12:00 PM EDT Narrative [facility] - 07/29/2017 12:06 PM EDT This test was performed using the FDA Approved APTIMA HPV mRNA assay which detects E6/E7 messenger RNA of High Risk HPV types (16, 18, 31, 33, 35, 39, 45, 51, 52, 56, 58, 59, 66, and 68). This assay is intended for use in women 21 years or older with ASC-US cervical cytology or women 30 years or older. This assay is not intended to substitute for regular cervical cytology screening. Detection of HPV using the APTIMA HPV Assay does not differentiate HPV types and cannot evaluate persistence of any one type. The use of this assay has not been evaluated for the management of HPV vaccinated women, women with prior ablative or excisional therapy, hysterectomy, or who are . Sensitivities may be affected by collection methods, stage of infection, and the presence of interfering substances. Results of this assay should be interpreted in conjunction with other available laboratory and clinical data. Keyonna Goss MD MICROBIOLOGY - GENER AL ORDERABLES Final Result Performing Organization Address City/[facility] Co de Phone Number [facility] [address] [facility], [place] [address] * STREP A DNA (01/25/2017 4:39 PM EST) Pathologist [facility] Strep A DNA Not Detected Not Detected 7 2:06 PM EST [facility] Swab 01/25/2017 4:39 PM EST 01/25/2017 4:39 PM EST Narrative [facility] - 01/26/2017 2:06 PM EST Test methodology by DNA probe. The performance characteristics of this test were validated by [facility]. A negative result does not rule out the presence of Group A Streptococcus DNA in concentrations below the level of detection of the assay. This laboratory is authorized under the Clinical Laboratory Improvement Amendments (CLIA) as qualified to perform high complexity testing. Compliance statement is available in the Laboratory. Lacy Zayas MD MICROBIOLOGY - GENERAL ORDERABL ES Final Result Performing Organization Address [facility] de Phone Number [facility] [address] [place] [address] * POCT RAPID STREP A (01/25/2017 3:09 PM EST) [facility] Strep A Ag None Detected None Detected Pos/Neg SEP OFFICE Lot Number SEP OFFICE Expiration Date SEP OFFICE SeriAl # SEP OFFICE Control Line YES/NO SEP OFFICE 01/25/2017 3:09 PM EST Lacy Zayas MD POINT OF CARE TEST ORDERABLES F inal Result Performing Organization Address [facility] de Phone Number SEP OFFICE * DX BONE DENSITY AXIAL SKELETON (08/30/2016 1:04 PM EDT) Anatomical Region Laterality Modality Dexa Scan 08/30/2016 Narrative 08/31/2016 9:46 AM EDT Indication: The patient is a post-menopausal female under age 65 with clinical risk factors for an osteoporotic fracture that requires a bone density assessment. Study was performed on Discovery APEX 3.2. Bone Density: Region BMD T-score Z-score Femoral Neck (Left) 0.695 -1.4 0.0 Total Hip (Left) 0.854 -0.7 0.4 Femoral Neck (Right) 0.710 -1.3 0.1 Total Hip (Right) 0.901 -0.3 0.7 1/3 Radius (Left) 0.638 -0.9 0.5 World Health Organization criteria for BMD interpretation classify patients as: Normal (T-score at or above -1.0), Low Bone Density (T-score between -1.0 and -2.5), or Osteoporotic (T-score at or below -2.5). T Scores are reported in Postmenopausal women and in men age 50 and older. Z-scores are reported in females prior to menopause and in males younger than age 50. 10-year Fracture Risk(1): Major Osteoporotic Fracture 16% Hip Fracture 0.7% Reported Risk Factors: [place] (), Neck BMD=0.695, BMI=27.5, parental fracture (1) FRAX(R) Version 3.01. Fracture probability calculated for an untreated patient. Fracture probability may be lower if the patient has received treatment. Clinical Information Provided by Patient: Parent has had a hip fracture. Has used or is currently using the following medications: Thyroid medication Patient maximum height was 66 Menopause Age: 51 Patient is postmenopausal. Interpretation: Bone mineral density is in the low bone density range. Medical evaluation for secondary causes of low bone mineral density may be appropriate. A minimum of two years may be required between bone density studies due to inherent testing precision limitations. Intervals between BMD testing should be determined according to each patient's clinical status: typically one year after initiation or change in therapy is appropriate, with longer intervals once therapeutic effect is established. The spine portion of the study is omitted due to visual hypertrophic change. Reported by: Cynthia Guerra PA-C, [facility], CCD on 08/31/2016 9:38:00 AM. Virginia Mcclelland PA-C IMG DEXA ORDERABLES Final Resul t * HEPATITIS C ANTIBODY - SCREENING (08/10/2016 8:51 AM EDT) Pathologist [facility] Hep C Ab Negative Negative [facility] Blood specimen (specimen) 08/10/2016 8:51 AM EDT 08/10/2016 3:23 PM EDT Virginia Mcclelland PA-C HEMATOLOGY ORDERABLES Final Res ult Performing Organization Address [facility] Co de Phone Number [facility] [address] [place] [address] * DIFFERENTIAL (08/10/2016 8:51 AM EDT) Only the most recent of4 resultswithin the time period is included. Neut Percent 56.7 % [facility] Lymph Percent 30.5 % [facility] [facility] [place] Percent 9.4 % [facility] [facility] Eos Percent 2.5 % [facility] Baso Percent 0.9 % [facility] Neut# 3.2 1.8 - 7.7 x10(3)/[facility] Lymph# 1.7 0.6 - 4.8 x10(3)/[facility]L [facility] Roosevelt# 0.5 0.0 - 1.3 x10(3)/[facility] Eos# 0.1 0.0 - 0.5 x10(3)/[facility] LABORATORY Baso# 0.1 0.0 - 0.2 x10(3)/[facility] LABORATORY Blood specimen (specimen) 08/10/2016 8:51 AM EDT 08/10/2016 3:23 PM EDT [place] PARTIDA HEMATOLOGY ORDERABLES Final Res ult Performing Organization Address [facility] Co de Phone Number [facility] [address] [place] [address] * SCANNED RADIOLOGY REPORT (03/04/2015 8:35 AM EST) Anatomical Region Laterality Modality Other 03/04/2015 8:35 AM EST us Unknown Unknown IMG DIAGNOSTIC IMAGING ORDERABLE S Final Result * NM MYOCARDIAL PERFUSION SPECT STRESS AND REST (03/03/2015 11:46 AM EST) Anatomical Region Laterality Modality Nuclear Medicine 03/03/2015 10:2 4 AM EST Impressions 03/03/2015 4:14 PM EST IMPRESSIONS There are no significant reversible defects. Narrative Procedure Note Milan Storey MD - 03/03/2015 IMPRESSION IMPRESSIONS There are no significant reversible defects. [place] Mcclelland PA-C IMG NM CARDIAC ORDERABLES Final Result * ST STRESS TEST EXERCISE (03/03/2015 11:18 AM EST) Anatomical Region Laterality Modality Cardiac Stress T esting 03/03/2015 10:4 7 AM EST Impressions 03/03/2015 11:44 AM EST Exercise ECG Report Mallow Tracy Interpretive Statements Type of Test: Exercise Reason for Exam: palpitations Ordering Diagnosis: same Resting HR: 70 Peak HR: 140 Resting B/P 142/77 Peak B/P 193/82 1. METS achieved 11.2 2. WALKED 10:30___ MINUTES ON FULL ERNESTINE PROTOCOL 3. Target HR achieved _x__ Yes ___ NO____HEART RATE 4. Termination of test due to fatigue 5. Symptoms: no c/o chest discomfort during stress test. 6. Imaging pending ____no _x___ yes Nuclear x___ Echo ____ 7. Resting EK. Arrhythmias: 9. Conclusion: Non-diagnostic EKG Response Electronically Signed On 03-03-2015 11:44:32 EST by Rcoael Amos MD Narrative Procedure Note Rocael Amos MD - 03/03/2015 IMPRESSION Exercise ECG Report Mallow Tracy Interpretive Statements Type of Test: Exercise Reason for Exam: palpitations Ordering Diagnosis: same Resting HR: 70 Peak HR: 140 Resting B/P 142/77 Peak B/P 193/82 1. METS achieved 11.2 2. WALKED 10:30___ MINUTES ON FULL ERNESTINE PROTOCOL 3. Target HR achieved _x__ Yes ___ NO____HEART RATE 4. Termination of test due to fatigue 5. Symptoms: no c/o chest discomfort during stress test. 6. Imaging pending ____no _x___ yes Nuclear x___ Echo ____ 7. Resting EK. Arrhythmias: 9. Conclusion: Non-diagnostic EKG Response Electronically Signed On 03-03-2015 11:44:32 EST by Rocael Amos MD [place] Mcclelland PA-C IMG STRESS ORDERABLES Final Res ult * POCT EKG (02/25/2015 3:30 PM EST) 02/25/2015 3:30 PM EST Impressions SEP OFFICE - 02/25/2015 3:30 PM EST Sinus Tachycardia -Diffuse ST depression -consider subendocardial injury/ischemia. No tracing for comparison. Reviewed by Dr. Mc [place] Mcclelland PA-C POINT OF CARE CARDIOLOGY Final Result Performing Organization Address City/[facility] Co de Phone Number SEP OFFICE * PRODUCT DEVELOPMENT WORKER CYTOLOGY REPORT (08/14/2014 5:18 AM EDT) Only the most recent of2 resultswithin the time period is included. Airplane Dispatcher Cytology Report PATIENT NAME:VIRGINIA BUSH Airplane Dispatcher Cytology Report Accession Number Collected Date/Time Received Date/Time [id number] 08/14/14 05:18 EDT 08/15/14 05:32 EDT GY Specimen Source Specimen Vag/Cerv/Endocx?: Cervical/Endocervi fritz Statement of Adequacy Satisfactory for Evaluation. Transformation Zone Absent. This is not unusual in a post-menopausal woman. Diagnosis NEGATIVE FOR INTRAEPITHELIAL LESION OR MALIGNANCY. Comment The Pap Smear is a screening test that aids in the detection of cervical cancer and cancer precursors. Both false positive and false negative results can occur. The test should be used at regular intervals, and positive results should be confirmed before definitive therapy. Processed using the ThinPrep Floor Broker automated cytology screening device (Tapingo). Textile Broker: TS 08/19/2014 Completed by: SHANNON Najera (Electronically signed by) 08/19/2014 [facility] Laboratory [facility] 08/14/2014 5:18 AM EDT Bartolo Marie MD PATHOLOGY ORDERABLES Final Result Performing Organization Address City/[facility]/ZIP Co de Phone Number [facility] [address] [place] [address] * MM MAMMO DIGITAL SCREENING W CAD BILAT (03/11/2014 10:00 AM EST) Only the most recent of4 resultswithin the time period is included. Anatomical Region Laterality Modality Breast Bilateral Mammography 03/13/2014 8:24 AM EST Impressions 03/13/2014 9:58 AM EST : Negative (HFS-Qaheoftp-1) ~ RECOMMENDATION: Routine screening mammogram in 1 year. ~ * The patient with a palpable abnormality, unexplained by breast imaging, should be managed on clinical basis by the attending physician. * Breast imaging has a false negative rate of 15%. * The patient was notified by mail of the results of this examination. *The patient's information was entered into a reminder system with a target due date for the next mammogram. The mammogram was reviewed by a Radiologist and CAD. Narrative 03/13/2014 9:58 AM EST Procedure:MM MAMMO DIGITAL SCREENING W CAD BILAT ~ Reason for exam: screening (asymptomatic). ~ MM MAMMO DIG SCREEN CAD BILAT Bilateral CC and MLO view(s) were taken. There are scattered fibroglandular densities. Compared to prior studies the most recent being 12-14-12 ~ us Bartolo Marie MD IMG MAMMOGRAPHY ORDERABLES Final Result * VITAMIN D 25 HYDROXY (12/26/2013 7:54 AM EST) VIT D 25 OH 36.6 30.0 - 120.0 ng/mL [facility] Comment: INTERPRETIVE INFORMATION: Vitamin D, 25-Hydroxy <20 ng/mL Deficiency 20 - 29 ng/mL Insufficiency 30 - 80 ng/mL Optimum Level >120 ng/mL Possible Toxicity NOTE: For infants and children up to 17 years of age, the optimum level is >=20 ng/mL. This assay accurately quantifies the sum of vitamin D3, 25-Hydroxy and vitamin D2, 25-Hydroxy. Blood specimen (specimen) UPPER LIMB STRUCTURE / Unknown 12/26/2013 7:54 AM EST 12/26/2013 1:51 PM EST us Lacy Zayas MD CHEMISTRY ORDERABLES Final Resu lt [facility] [address] [place] [address] * VITAMIN B12 LEVEL (12/26/2013 7:54 AM EST) Pathologist [facility] Vitamin B12 451 211 - 946 pg/mL [facility] Blood specimen (specimen) UPPER LIMB STRUCTURE / Unknown 12/26/2013 7:54 AM EST 12/26/2013 1:51 PM EST Lacy Zayas MD CHEMISTRY ORDERABLES Final Resu lt Performing Organization Address [facility] Co de Phone Number [facility] [address] [place] [address] * (ABNORMAL) HEPATIC FUNCTION PANEL (12/26/2013 7:54 AM EST) [facility] Total Protein 7.1 6.4 - 8.3 gm/dL [facility] Albumin 4.2 3.5 - 5.2 gm/dL [facility] Bili Direct <0.2 0.0 - 0.3 mg/dL [facility] Bili Total 0.3 0.1 - 1.3 mg/dL [facility] AST 24 <=40 IU/L [facility] ALT 20 <=41 IU/L [facility] Alk Phos 125(H) 35 - 104 IU/L [facility] Blood specimen (specimen) UPPER LIMB STRUCTURE / Unknown 12/26/2013 7:54 AM EST 12/26/2013 1:51 PM EST Lacy Zayas MD CHEMISTRY ORDERABLES Edited Res ult - Final Performing Organization Address [facility] Co de Phone Number [facility] [address] [place] [address] * THYROGLOBULIN (11/05/2013 9:15 AM EDT) Only the most recent of4 resultswithin the time period is included. [facility] Thyroglobulin <0.2 0.0 - 55.0 ng/mL [facility] Comment: Thyroglobulin Autoantibodies may interfere with assays for Thyroglobulin and may cause underestimation of the Thyroglobulin level. If Thyroglobulin is ordered alone, please interpret with caution. Performed at: [facility] [address] [place] [address], [address] [place] [id number] Blood specimen (specimen) UPPER LIMB STRUCTURE / Unknown 11/05/2013 9:15 AM EDT 11/05/2013 4:31 PM EDT Narrative [facility] - 11/06/2013 4:01 PM EDT Fax results [phone] Nabeel Castro MD CHEMISTRY ORDERABL ES Final Result Performing Organization Address [facility] de Phone Number [facility] [address] [place] [address] * THYROGLOBULIN ANTIBODY (11/05/2013 9:15 AM EDT) Thyroglob Ab <20.0 <40.0 [facility] Comment: Performed at: [facility] [address] [place] [id number] Blood specimen (specimen) UPPER LIMB STRUCTURE / Unknown 11/05/2013 9:15 AM EDT 11/05/2013 4:31 PM EDT Narrative [facility] - 11/06/2013 4:01 PM EDT Fax results [phone] Nabeel Castro MD IMMUNOLOGY ORDERAB LES Final Result Performing Organization Address [facility] de Phone Number [facility] [address] [place] [address] * CT CHEST W CONTRAST (04/13/2013 9:57 AM EST) Anatomical Region Laterality Modality Chest Computed Tomogra phy 04/13/2013 9:20 AM EST Impressions 04/13/2013 4:07 PM EST IMPRESSION: Baseline chest CT with contrast performed. No acute intrathoracic process. No focal soft tissue abnormality or bony process. Please see above detailed report. Narrative 04/13/2013 4:07 PM EST 04/13/[address] with multiplanar reconstructions: CLINICAL HISTORY: The patient presents with persistent palpable abnormality in the region of the medial right clavicle head. Direct comparison with 04/03/2013 right clavicle films. Direct 5 mm axial imaging of the chest performed after IV injection, 75 cc Isovue-370. A skin marker was placed along the upper right anterior chest wall at site of palpable abnormality. Additional multiplanar reconstruction images reviewed separately. No significant cardiac enlargement. Normal enhancement of the mediastinal great vessels. No focal intrathoracic lymphadenopathy. Review of the lung windows demonstrates no focal lung consolidation, atelectasis or pleural effusion. No focal supraclavicular lymphadenopathy. No focal soft tissue mass or lymph node involves the upper right anterior chest at site of palpable abnormality. No focal abnormality of the right clavicle. Very early degenerative change involves both sternoclavicular joints. No focal bony exostosis or bony destructive process appreciated. The soft tissues of the mid/lower neck appear unremarkable. The visualized upper abdominal structures are unremarkable. Multilevel degenerative discogenic change involves the thoracic spine. No focal sternal abnormality. Procedure Note Rocael Stafford DO - 04/13/2013 04/13/[address] with multiplanar reconstructions: CLINICAL HISTORY: The patient presents with persistent palpableabnormality in the region of the medial right clavicle head. Direct comparison with 04/03/2013 rightclavicle films. Direct 5 mm axial imaging of the chest performed after IV injection, 75 ccIsovue-370. A skin marker was placed along the upper right anterior chest wall at site ofpalpable abnormality. Additional multiplanar reconstruction images reviewed separately. No significant cardiac enlargement. Normal enhancement of the mediastinalgreat vessels. No focal intrathoracic lymphadenopathy. Review of the lung windowsdemonstrates no focal lung consolidation, atelectasis or pleural effusion. No focal supraclavicularlymphadenopathy. No focal soft tissue mass or lymph node involves the upper right anteriorchest at site of palpable abnormality. No focal abnormality of the right clavicle. Veryearly degenerative change involves both sternoclavicular joints. No focal bony exostosis orbony destructive process appreciated. The soft tissues of the mid/lower neck appearunremarkable. The visualized upper abdominal structures are unremarkable. Multilevel degenerativediscogenic change involves the thoracic spine. No focal sternal abnormality. IMPRESSION: Baseline chest CT with contrast performed. No acuteintrathoracic process. No focal soft tissue abnormality or bony process. Please see above detailedreport. [place] PA-C IMG CT ORDERABLES Final Result * XR CLAVICLE RIGHT (04/03/2013 9:50 AM EST) Anatomical Region Laterality Modality Shoulder Radiographic Minerva ging 04/03/2013 9:34 AM EST Addenda Addendum by Rocael Stafford DO on 04/09/2013 4:05 PM EST 04/09/2013 ADDENDUM: The clinician indicates focal visible right clavicle bony protrusion. No focal bony expansile process appreciated. Minimal degenerative change involves the AC joint. A vague soft tissue nodule within the right supraclavicular fossa may be present on the AP view. This finding is not confirmed on additional views. Followup thin section chest CT with attention to the lower neck and supraclavicular region may provide additional diagnostic information. Impressions 04/03/2013 9:56 AM EST IMPRESSION: No evidence of right clavicle fracture or bony destructive process. Narrative 04/03/2013 9:56 AM EST 04/03/2013 Right clavicle series: HISTORY: Recurrent pain and asymmetry. No comparison films. No focal expansile lesion or bony destructive process. Minimal degenerative change, AC joint. Procedure Note Rocael Stafford DO - 04/03/2013 04/03/2013 Right clavicle series: HISTORY: Recurrent pain and asymmetry. No comparison films. No focal expansile lesion or bony destructive process. Minimaldegenerative change, AC joint. IMPRESSION: No evidence of right clavicle fracture or bony destructiveprocess. [place] Mcclelland PA-C IMG DIAGNOSTIC IMAGING ORDERABL ES Edited Result - Final * XR CLAVICLE LEFT (04/03/2013 9:50 AM EST) Anatomical Region Laterality Modality Shoulder Radiographic Minerva ging 04/03/2013 9:34 AM EST Impressions 04/03/2013 10:05 AM EST IMPRESSION: No significant osseous, joint or soft tissue abnormality is seen. Narrative 04/03/2013 10:05 AM EST XR CLAVICLE LEFT Apr 03, 2013 09:51:18 AM HISTORY: 733.99-Other disorders of bone and rxshlpspo-GXK-8-CM. Procedure Note Jerzy Ramírez MD - 02/18/2014 XR CLAVICLE LEFT Apr 03, 2013 09:51:18 AM HISTORY: 733.99-Other disorders of bone and frgizqyda-RPD-9-CM. IMPRESSION: No significant osseous, joint or soft tissue abnormality isseen. [place] Mcclelland PA-C IMG DIAGNOSTIC IMAGING ORDERABL ES Final Result * [facility]PT-[facility] (05/24/2012 6:30 AM EDT) CPT Code(s) [facility] Comment: [id number], [id number] [facility] assumes no responsibility for the accuracy of CPT codes provided which are for informational purposes only. CPT codes are payor specific and CPT coding is the sole responsibility of the billing entity. 05/24/2012 6:30 AM EDT 05/24/2012 10:29 PM EDT Narrative [facility] - 05/26/2012 1:34 PM EDT FASTING: UNKNOWN Resulting Agency Comment Performing Organization Information: Site ID: OW [facility] Address: [address] [place] [id number] Director: Lina Newton MD PhD Dominik Wharton MD [facility]-HEMATOLOGY ORDERABLES Final Result Performing Organization Address City/State/[facility] Co de Phone Number [facility] * TISSUE PATHOLOGY-[facility] (05/24/2012 6:30 AM EDT) Clinical Information ICD9 code V76.51, 569.3 [facility] Pathologist Review [facility] Comment: Radha Ruff M.D., Board Certified, Clinical and Anatomic Pathology Cytopathology (electronic signature) Path Clinical Impression Polypectomy in the distal sigmoid colon, diverticulosos of mild severity [facility] Source [facility] Comment:Sigmoid colon, polyp Specimen A Procedure Colonoscopy [facility] Specimen A Gross Description [facility] Comment: Received in formalin labeled with multiple patient identifiers and sigmoid colon polyp at 20 cm is an aggregate of mcgrath polypoid fragments, plus debris, 7 x 5 mm in greatest dimension after filtering. Entirely submitted in one cassette. RM/mem/mem Gross exam(s) performed at: [facility] [place] [id number] Network Systems Analyst: LINA NEWTON MD PHD Specimen A Diagnosis [facility] Comment: - Hyperplastic polyp with cautery artifact. [id number] 05/24/2012 6:30 AM EDT 05/24/2012 10:29 PM EDT Narrative [facility] - 05/26/2012 1:34 PM EDT FASTING: UNKNOWN Resulting Agency Comment Performing Organization Information: Site ID: [id number] Name: [facility] Address: [address] [place] [address], Pathology [address] [place] [address] Director: Delon Lozada MD Dominik Wharton MD [facility] ORDERABLES F inal Result Performing Organization Address City/[facility]/ZIP Co de Phone Number [facility] [address] [place] [address] * GMED COLONOSCOPY (05/24/2012 6:30 AM EDT) 05/24/2012 6:30 AM EDT Impressions [facility] - 07/05/2014 1:57 PM EDT Mild diverticulosis of the sigmoid colon. Polyp (5 mm) in the distal sigmoid colon. (Polypectomy). Grade 1 internal hemorrhoids. Plan: Anucort-HC 25 mg 1 Pr QHS Colonoscopy in 3-10 years depending on pathology results. High Fiber Diet Annual hemoccult testing in your primary care doctor's office. This section is an excerpt of the full report. us Dominik Wharton MD GI PROCEDURE ORDERABLES Edit ed Result - Final [facility] [address] [place] [address] * MM DIG SCR ANDREW PANEL W/CAD (12/30/2008 7:45 AM EST) Anatomical Region Laterality Modality Other 12/30/2008 7:45 AM EST Narrative 12/31/2008 5:38 AM EST Procedure-MM DIG SCR ANDREW PANEL W/CAD MM DIGITAL SCR BILAT PANEL Bilateral CC and MLO view(s) were taken. Prior study comparison- July 25, 2006, bilateral screening mammogram with CAD. The breast tissue is heterogeneously dense. This may lower the sensitivity of mammography. Compared to prior studies the most recent being 07/25/06. No significant changes when compared with prior studies. IMPRESSION- No radiographic evidence of malignancy (CJR-Qyxqfpsd-7) RECOMMENDATION- Routine screening mammogram in 1 year. * The patient with a palpable abnormality, unexplained by breast imaging, should be managed on clinical basis by the attending physician. * Breast imaging has a false negative rate of 15%. * The patient was notified by mail of the results of this examination. The mammogram was reviewed by a Radiologist and CAD. Website/Blog Editor- [place] Seo- CHIARA RODRIGUEZ M.D. Released Date Time- 12/31/08 1321 Procedure Note Bartolo Rodriguez - 04/25/2009 Procedure-MM DIG SCR ANDREW PANEL W/CAD MM DIGITAL SCR BILAT PANEL Bilateral CC and MLO view(s) were taken. Prior study comparison- July 25, 2006, bilateral screening mammogram with CAD. The breast tissue is heterogeneously dense. This may lower the sensitivity of mammography. Compared to prior studies the most recent being 07/25/06. No significant changes when compared with prior studies. IMPRESSION- No radiographic evidence of malignancy (FMF-[id number]-1) RECOMMENDATION- Routine screening mammogram in 1 year. * The patient with a palpable abnormality, unexplained by breast imaging, should be managed on clinical basis by the attending physician. * Breast imaging has a false negative rate of 15%. * The patient was notified by mail of the results of this examination. The mammogram was reviewed by a Radiologist and CAD. Website/Blog Editor- [place] Se[employer]- CHIARA RODRIGUEZ M.D. Released Date Time- 12/31/08 1321 us Bartolo Marie MD [facility] HISTORICAL Final Result * DXA SCAN AXIAL SKELETON (12/05/2008 12:00 AM EDT) Anatomical Region Laterality Modality Other 12/05/2008 12/05/2008 Narrative 12/05/2008 12:00 AM EDT Name: ELEAZAR COLEMAN : 1955 [facility]IED [facility] Reason: DEXA SCAN Dict.Staff: CHIARA RODRIGUEZ [id number] Verified By: VASHTI ELY Xavier: 12/09/08 9:42 pm Exams: [facility]-DXA SCAN AXIAL SKELETON DEXA SCAN EXAMINATION DATE: 12/09/2008. CLINICAL INDICATIONS: A 53-year-old postmenopausal female with history of thyroid cancer and scoliosis. FINDINGS: DEXA scan performed on [employer] equipment with no previous studies available for comparison. Previous DEXA scan performed in 08/2005 at [facility]. This is not available for our review. BMD for L1-L4 is 1.366g/cm2 with a T-score of +1.6. BMD for left hip neck region is 0.936g/cm2 with a T-score of -0.7. BMD for right hip neck region is 0.965g/cm2 with a T-score of -0.5. BMD for left hip total is 0.960g/cm2 with a T-score of -0.4. BMD for right hip total is 1.012g/cm2 with a T-score of 0.0. BMD for total mean hips is 0.986g/cm2. BMD for left radius 33% is 0.835g/cm2 with a T-score of -0.6. IMPRESSION: 1. Bone mineral density measurements for this patient are within the normal range as defined by the World Health Organization. 2. Follow-up study for this patient is recommended in 24 months or sooner as clinical history dictates. CYNTHIA GUERRA PA-C/CHIARA RODRIGUEZ MD:rito DICTATED 12/09/2008 @ 12:37 For postmenopausal females and males, the terms osteopenic and osteoporotic are defined by the World Health Organization (WHO) as greater than 1, but less than 2.5 standard deviations below the normal range, and greater than 2.5 standard deviations below the normal range. For premenopausal females, the Z-score is used. A Z-score of less than -2 is termed as low bone mineral density for age. end of result Procedure Note Unknown, U - 05/30/2009 Name: ELEAZAR COLEMAN : 1955 VERIFIED [facility] Reason: DEXA SCAN Dict.Staff: CHIARA RODRIGUEZ [id number] Verified By: VASHTI ELY Xavier: 12/09/08 9:42 pm Exams: [facility]-DXA SCAN AXIAL SKELETON DEXA SCAN EXAMINATION DATE: 12/09/2008. CLINICAL INDICATIONS: A 53-year-old postmenopausal female with history of thyroid cancer and scoliosis. FINDINGS: DEXA scan performed on [employer] equipment with no previous studies available for comparison. Previous DEXA scan performed in 08/2005 at [facility]. This is not available for our review. BMD for L1-L4 is 1.366g/cm2 with a T-score of +1.6. BMD for left hip neck region is 0.936g/cm2 with a T-score of -0.7. BMD for right hip neck region is 0.965g/cm2 with a T-score of -0.5. BMD for left hip total is 0.960g/cm2 with a T-score of -0.4. BMD for right hip total is 1.012g/cm2 with a T-score of 0.0. BMD for total mean hips is 0.986g/cm2. BMD for left radius 33% is 0.835g/cm2 with a T-score of -0.6. IMPRESSION: 1. Bone mineral density measurements for this patient are within the normal range as defined by the World Health Organization. 2. Follow-up study for this patient is recommended in 24 months or sooner as clinical history dictates. CYNTHIA GUERRA PA-C/CHIARA RODRIGUEZ MD:ridged DICTATED 12/09/2008 @ 12:37 For postmenopausal females and males, the terms osteopenic and osteoporotic are defined by the World Health Organization (WHO) as greater than 1, but less than 2.5 standard deviations below the normal range, and greater than 2.5 standard deviations below the normal range. For premenopausal females, the Z-score is used. A Z-score of less than -2 is termed as low bone mineral density for age. end of result us U Unknown IMG SE LW RAD HISTORICAL Final Result * MM MAMMO SCREEN W/CAD II PANEL (07/25/2006 10:45 AM EDT) Anatomical Region Laterality Modality Other 07/25/2006 10:4 5 AM EDT Narrative 07/25/2006 2:55 PM EDT Procedure-WW MAMMO SCREEN W/CAD II PANEL Reason for exam- screening. Screening Mammogram With CAD Bilateral CC and MLO view(s) were taken. Prior study comparison- May 06, 2003, bilateral screening mammogram. July 09, 1999, bilateral screening mammogram. There are scattered fibroglandular densities. No significant changes when compared with prior studies. IMPRESSION- No radiographic evidence of malignancy ([id number]) RECOMMENDATION- Routine screening mammogram in 1 year. * The patient with a palpable abnormality, unexplained by breast imaging, should be managed on clinical basis by the attending physician. * Breast imaging has a false negative rate of 15%. * The patient was notified by mail of the results of this examination. The mammogram was reviewed by a Radiologist and CAD. Website/Blog Editor- BALDEMAR JETER Reading Radiologist- BRIJESH VANEGAS MD Released Date Time- 07/25/06 1512 Procedure Note Brijesh Vanegas - 04/23/2009 Procedure-WW MAMMO SCREEN W/CAD II PANEL Reason for exam- screening. Screening Mammogram With CAD Bilateral CC and MLO view(s) were taken. Prior study comparison- May 06, 2003, bilateral screening mammogram. July 09, 1999, bilateral screening mammogram. There are scattered fibroglandular densities. No significant changes when compared with prior studies. IMPRESSION- No radiographic evidence of malignancy ([id number]) RECOMMENDATION- Routine screening mammogram in 1 year. * The patient with a palpable abnormality, unexplained by breast imaging, should be managed on clinical basis by the attending physician. * Breast imaging has a false negative rate of 15%. * The patient was notified by mail of the results of this examination. The mammogram was reviewed by a Radiologist and CAD. Website/Blog Editor- BALDEMAR JETER Reading Radiologist- BRIJESH VANEGAS MD Released Date Time- 07/25/06 1512 us Bartolo Marie MD [facility] RAD HISTORICAL Final Result * NM THYROID IMAGING WITH UPTAKE (06/03/2005 12:00 AM EDT) Anatomical Region Laterality Modality Other 06/03/2005 06/03/2005 Narrative 06/03/2005 12:00 AM EDT VERIFIED [facility] Reason: THYROID MASS Dict.Staff: VASHTI KABA Verified By: ASHLEY ESPITIA Xavier: 06/04/05 8:20 pm Exams: NM-THYROID IMAGING W/UPTAKE 06-03-05 NM THYROID SCAN AND UPTAKE: 1. History: Patient with history of previous biopsy of a solid mass in lower pole of left lobe of thyroid who on recent (06-03-05) thyroid ultrasound was noted to have increase in size of the solid left lower lobe mass. 2. 256 UCI of Iodine 123 was administered. 24 hour uptake is 19%, which is in the normal range. 3. Corresponding to patient's known solid mass in lower pole of left lobe, there is a moderate rounded area of decreased uptake overlying inferior one-third to one-half of left lobe. Uptake in the remainder of both lobes is uniform. IMPRESSION: THE PATIENT'S KNOWN LEFT LOWER POLE MASS DEMONSTRATED ON YESTERDAY'S THYROID US CORRESPONDS TO A COLD NODULE. THEREFORE, RE-BIOPSY OF THE SOLID MASS IN LOWER POLE OF LEFT LOBE SHOULD BE CONSIDERED TO EXCLUDE MALIGNANCY. JLS/RH end of result Procedure Note Unknown, U - 05/29/2009 VERIFIED [facility] Reason: THYROID MASS Dict.Staff: VASHTI KABA Verified By: ASHLEY ESPITIA Xavier: 06/04/05 8:20 pm Exams: NM-THYROID IMAGING W/UPTAKE 06-03-05 NM THYROID SCAN AND UPTAKE: 1. History: Patient with history of previous biopsy of a solid mass in lower pole of left lobe of thyroid who on recent (06-03-05) thyroid ultrasound was noted to have increase in size of the solid left lower lobe mass. 2. 256 UCI of Iodine 123 was administered. 24 hour uptake is 19%, which is in the normal range. 3. Corresponding to patient's known solid mass in lower pole of left lobe, there is a moderate rounded area of decreased uptake overlying inferior one-third to one-half of left lobe. Uptake in the remainder of both lobes is uniform. IMPRESSION: THE PATIENT'S KNOWN LEFT LOWER POLE MASS DEMONSTRATED ON YESTERDAY'S THYROID US CORRESPONDS TO A COLD NODULE. THEREFORE, RE-BIOPSY OF THE SOLID MASS IN LOWER POLE OF LEFT LOBE SHOULD BE CONSIDERED TO EXCLUDE MALIGNANCY. JLS/RH end of result us U Unknown [facility] RAD HISTORICAL Final Result * US THYROID/NECK/HEAD (06/03/2005 12:00 AM EDT) Anatomical Region Laterality Modality Other 06/03/2005 06/03/2005 Narrative 06/03/2005 12:00 AM EDT VERIFIED [facility] Reason: THYROID MASS Dict.Staff: ROCAEL STAFFORD Verified By: ROCAEL STAFFORD Xavier: 06/03/05 4:51 pm Exams: US-THYROID/NECK/HEAD 06-03-05 THYROID ULTRASOUND: Real time ultrasound exam of the thyroid performed. Comparison with previous 06-28-01 study. The patient indicates having prior outpatient biopsy of solid left thyroid nodule in 2001 with subsequent benign histology. In addition, the patient had a dominant complex cyst of the right lobe of the thyroid which was percutaneously aspirated. On today's exam, the previously noted cystic mass within the right lobe of the thyroid has resolved. A solitary benign appearing hypoechoic solid nodule is noted within the right lobe posteriorly which measures 4 x 3 mm. Concerning the left lobe, there has been interval enlargement of dominant solid nodule which occupies the majority of the left lobe with sparing of the upper pole region. This dominant left-sided nodule measured 2.5 x 1.6 x 1.5 cm on the prior exam. This nodule is hypervascular and measures 2.3 x 3.9 x 2.4 cm. In addition, a 4 x 2 mm hypoechoic nodule is noted within the medial aspect of the left lobe near the isthmus. Right lobe: 3.9 x 1.5 x 1.3 cm. Left lobe: 6.9 x 2.4 x 1.8 cm. IMPRESSION: 1. INTERVAL RESOLUTION OF DOMINANT COMPLEX CYST OF THE RIGHT LOBE. 2. DOMINANT SOLID NODULE WITHIN THE LEFT LOBE OF THE THYROID HAS PROGRESSIVELY ENLARGED AND IS HYPERVASCULAR. THE PATIENT CLAIMS HAVING A PRIOR OUTPATIENT BENIGN BIOPSY OF THIS NODULE IN 2001. BASED ON THE INTERVAL ENLARGEMENT AND HYPERVASCULAR APPEARANCE, I WOULD ADVISE A THYROID UPTAKE AND SCAN TO DETERMINE THE METABOLIC ACTIVITY OF THIS NODULE. THE PATIENT MAY REQUIRE A FOLLOW-UP REBIOPSY OF THIS NODULE BASED ON THE INTERVAL ENLARGEMENT. MAT/SHERLY end of result Procedure Note Unknown, U - 05/29/2009 VERIFIED [facility] Reason: THYROID MASS Dict.Staff: ROCAEL STAFFORD Verified By: ROCAEL STAFFORD Xavier: 06/03/05 4:51 pm Exams: US-THYROID/NECK/HEAD 06-03-05 THYROID ULTRASOUND: Real time ultrasound exam of the thyroid performed. Comparison with previous 06-28-01 study. The patient indicates having prior outpatient biopsy of solid left thyroid nodule in 2001 with subsequent benign histology. In addition, the patient had a dominant complex cyst of the right lobe of the thyroid which was percutaneously aspirated. On today's exam, the previously noted cystic mass within the right lobe of the thyroid has resolved. A solitary benign appearing hypoechoic solid nodule is noted within the right lobe posteriorly which measures 4 x 3 mm. Concerning the left lobe, there has been interval enlargement of dominant solid nodule which occupies the majority of the left lobe with sparing of the upper pole region. This dominant left-sided nodule measured 2.5 x 1.6 x 1.5 cm on the prior exam. This nodule is hypervascular and measures 2.3 x 3.9 x 2.4 cm. In addition, a 4 x 2 mm hypoechoic nodule is noted within the medial aspect of the left lobe near the isthmus. Right lobe: 3.9 x 1.5 x 1.3 cm. Left lobe: 6.9 x 2.4 x 1.8 cm. IMPRESSION: 1. INTERVAL RESOLUTION OF DOMINANT COMPLEX CYST OF THE RIGHT LOBE. 2. DOMINANT SOLID NODULE WITHIN THE LEFT LOBE OF THE THYROID HAS PROGRESSIVELY ENLARGED AND IS HYPERVASCULAR. THE PATIENT CLAIMS HAVING A PRIOR OUTPATIENT BENIGN BIOPSY OF THIS NODULE IN 2001. BASED ON THE INTERVAL ENLARGEMENT AND HYPERVASCULAR APPEARANCE, I WOULD ADVISE A THYROID UPTAKE AND SCAN TO DETERMINE THE METABOLIC ACTIVITY OF THIS NODULE. THE PATIENT MAY REQUIRE A FOLLOW-UP REBIOPSY OF THIS NODULE BASED ON THE INTERVAL ENLARGEMENT. MAT/SHERLY end of result us U Unknown [facility] HISTORICAL Final Result Visit Diagnoses Diagnosis Start Date Malignant neoplasm of thyroid gland (HCC) Malignant neoplasm of thyroid gland 11/11/2009 Elevated blood pressure Elevated blood pressure reading without diagnosis of hypertension 05/14/2010 Other screening mammogram 06/15/2010 Laryngitis Acute laryngitis, without mention of obstruction 11/21/2010 Psoriasis Other psoriasis 11/21/2010 Malignant neoplasm of thyroid gland (HCC) Malignant neoplasm of thyroid gland 12/22/2010 Cerumen impaction Impacted cerumen 02/05/2011 STEFFANIE (serous otitis media) Nonsuppurative otitis media, not specified as acute or chronic 02/05/2011 Malignant neoplasm of thyroid gland (HCC) Malignant neoplasm of thyroid gland 03/23/2011 Other screening mammogram 09/02/2011 Malignant neoplasm of thyroid gland (HCC) Malignant neoplasm of thyroid gland 09/30/2011 Flu vaccine need Need for prophylactic vaccination and inoculation against influenza 12/01/2011 Malignant neoplasm of thyroid gland (HCC) Malignant neoplasm of thyroid gland 03/09/2012 Rectal bleeding Hemorrhage of rectum and anus 04/12/2012 Colon cancer screening Special screening for malignant neoplasms, colon 04/12/2012 Cerumen impaction Impacted cerumen 08/09/2012 Flu vaccine need Need for prophylactic vaccination and inoculation against influenza 11/16/2012 Other screening mammogram 12/14/2012 Malignant neoplasm of thyroid gland (HCC) Malignant neoplasm of thyroid gland 01/25/2013 Anxiety Anxiety state, unspecified 03/28/2013 Preventative health care Routine general medical examination at a health care facility 03/28/2013 Clavicle enlargement Other disorders of bone and cartilage 03/28/2013 Clavicle enlargement Other disorders of bone and cartilage 04/03/2013 Preventative health care Routine general medical examination at a health care facility 04/03/2013 Acute back pain Backache, unspecified 04/13/2013 Abnormal growth of clavicle Neoplasm of unspecified nature of bone, soft tissue, and skin 04/13/2013 Anxiety Anxiety state, unspecified 09/27/2013 Anxiety Anxiety state, unspecified 09/27/2013 Malignant neoplasm of thyroid gland (HCC) Malignant neoplasm of thyroid gland 11/05/2013 Screening Screening for unspecified condition 12/25/2013 Screening Screening for unspecified condition 12/26/2013 Flu vaccine need Need for prophylactic vaccination and inoculation against influenza 12/26/2013 Other screening mammogram 03/11/2014 Anxiety Anxiety state, unspecified 07/24/2014 Routine gynecological examination 08/14/2014 Need for influenza vaccination Need for prophylactic vaccination and inoculation against influenza 10/22/2014 Cerumen impaction, bilateral 10/22/2014 Malignant neoplasm of thyroid gland (HCC) Malignant neoplasm of thyroid gland 12/09/2014 Palpitations 02/25/2015 Palpitations 02/25/2015 Hypothyroidism, unspecified hypothyroidism type 02/25/2015 Abnormal laboratory test Other abnormal clinical finding 03/03/2015 Palpitations 03/03/2015 Palpitations 03/03/2015 Abnormal laboratory test Other abnormal clinical finding 03/06/2015 Flu vaccine need Need for prophylactic vaccination and inoculation against influenza 12/16/2015 Malignant neoplasm of thyroid gland (HCC) Malignant neoplasm of thyroid gland 01/16/2016 Visit for screening mammogram Other screening mammogram 07/27/2016 Preventative health care Routine general medical examination at a health care facility 07/27/2016 Hypothyroidism, unspecified type 07/27/2016 Anxiety Anxiety state, unspecified 07/27/2016 History of thyroid cancer Personal history of malignant neoplasm of thyroid 07/27/2016 Need for hepatitis C screening test Special screening examination for other specified viral diseases 07/27/2016 Need for Zostavax administration 07/27/2016 Screening for osteoporosis Special screening for osteoporosis 07/27/2016 Environmental allergies Allergic rhinitis, cause unspecified 07/27/2016 Hemorrhoids, unspecified hemorrhoid type 07/27/2016 Acute bacterial sinusitis Acute sinusitis, unspecified 07/27/2016 Osteoarthritis of ankle, unspecified laterality, unspecified osteoarthritis type 07/27/2016 Preventative health care Routine general medical examination at a health care facility 08/10/2016 Need for hepatitis C screening test Special screening examination for other specified viral diseases 08/10/2016 Hypothyroidism, unspecified type 08/10/2016 Visit for screening mammogram Other screening mammogram 08/30/2016 Screening for osteoporosis Special screening for osteoporosis 08/30/2016 Flu vaccine need Need for prophylactic vaccination and inoculation against influenza 01/19/2017 Sore throat Acute pharyngitis 01/25/2017 Viral pharyngitis Acute pharyngitis 01/25/2017 Malignant neoplasm of thyroid gland (HCC) Malignant neoplasm of thyroid gland 03/09/2017 Anxiety Anxiety state, unspecified 04/27/2017 Well woman exam Routine general medical examination at a health care facility 07/28/2017 Lichen sclerosus Circumscribed scleroderma 07/28/2017 Vagina itching Pruritus of genital organs 07/28/2017 Need for prophylactic vaccination and inoculation against influenza 11/02/2017 Malignant neoplasm of thyroid gland (HCC) Malignant neoplasm of thyroid gland 04/18/2018 Flu vaccine need Need for prophylactic vaccination and inoculation against influenza 11/01/2018 Need for influenza vaccination Need for prophylactic vaccination and inoculation against influenza 11/26/2019 Tinnitus, left ear 04/30/2020 Sensorineural hearing loss, unilateral, left ear, with unrestricted hearing on the contralateral side 04/30/2020 Abnormal auditory perception, bilateral 04/30/2020 Bilateral impacted cerumen Impacted cerumen 04/30/2020 Sudden hearing loss, left 04/30/2020 Tinnitus, left ear 05/07/2020 Sensorineural hearing loss (SNHL) of both ears 05/07/2020 Sudden hearing loss, left 05/07/2020 Sudden hearing loss, left 05/16/2020 Tinnitus, left ear 05/16/2020 Sensorineural hearing loss, unilateral, left ear, with unrestricted hearing on the contralateral side 05/16/2020 COVID-19 11/03/2020 Loss of smell Disturbances of sensation of smell and taste 11/03/2020 COVID-19 11/04/2020 COVID-19 11/05/2020 Acute URI Acute upper respiratory infections of unspecified site 01/17/2021 Cough 01/17/2021 Acute URI Acute upper respiratory infections of unspecified site 01/17/2021 Cough 01/17/2021 Acute bronchitis, unspecified organism 01/17/2021 Bilateral impacted cerumen Impacted cerumen 01/27/2021 Abnormal auditory perception, bilateral 01/27/2021 Sensorineural hearing loss of both ears Sensorineural hearing loss, bilateral 01/27/2021 Encounter for screening mammogram for malignant neoplasm of breast Other screening mammogram 07/08/2021 Chronic eczematous otitis externa of both ears 10/19/2022 Bilateral impacted cerumen Impacted cerumen 10/19/2022 Acute appendicitis, unspecified acute appendicitis type 01/14/2023 Acute appendicitis with localized peritonitis, without perforation, abscess, or gangrene 01/14/2023 Acute appendicitis, unspecified acute appendicitis type 01/14/2023 Status post laparoscopic appendectomy Other postprocedural status 01/24/2023 Encounter for screening mammogram for malignant neoplasm of breast Other screening mammogram 10/10/2023 Postsurgical hypothyroidism 02/13/2024 History of thyroid cancer Personal history of malignant neoplasm of thyroid 02/13/2024 Postsurgical hypothyroidism 02/13/2024 History of thyroid cancer Personal history of malignant neoplasm of thyroid 02/13/2024 NSTEMI (non-ST elevated myocardial infarction) (HCC) Acute myocardial infarction, subendocardial infarction, episode of care unspecified 04/20/2024 Chest pain, unspecified type 04/19/2024 NSTEMI (non-ST elevated myocardial infarction) (HCC) Acute myocardial infarction, subendocardial infarction, episode of care unspecified 04/19/2024 Chest pain, unspecified type 04/25/2024 Essential hypertension Unspecified essential hypertension 04/25/2024 Postsurgical hypothyroidism 05/01/2024 History of thyroid cancer Personal history of malignant neoplasm of thyroid 05/01/2024 Postoperative hypothyroidism Postsurgical hypothyroidism 05/15/2024 History of thyroid cancer Personal history of malignant neoplasm of thyroid 05/15/2024 Acute appendicitis with localized peritonitis, without perforation, abscess, or gangrene 01/14/2023 Chest pain, unspecified type 04/19/2024 Anxiety Anxiety state, unspecified 04/19/2024 Hypothyroid Unspecified hypothyroidism 04/19/2024 History of thyroid cancer Personal history of malignant neoplasm of thyroid 04/19/2024 Elevated troponin Other abnormal blood chemistry 04/19/2024 Primary hypertension Unspecified essential hypertension 04/19/2024 Goals Goal Patient Goal Type Associated Problems Recent Progress Patient-Stated? Author Maintain a healthy diet, exercise regularly and maintain an ideal body weight General No Geena Phan LPN Care Teams Telemarketing Sales Representative Relationship Specialty Start Date End Date José Priest MD PCP - General Family Medicine 01/14/23 Kanchan Martinez MD [address] [place] [address] Internal Medicine-Cardiovascular Disease 04/25/24
--- OUTSIDE RECORDS SUMMARY | 2024-11-05 15:50 | XMS_ITS | Encounter Summary ---
Author Organization [facility] Address [facility] [place] [address] Care Team Providers Care Vendor Specialist Name Role Phone Lacy Zayas MD Primary Care Provider Source Comments This information has been disclosed [...] release of HIV test results or diagnoses. [id number] Health Encounter Details Date Type Department Care Team (Late st Contact Info) Description 02/28/2015 Orders Only [facility] Nuclear Medicine [address] [place] [phone] Nabeel Castro MD Malignant neoplasm of thyroid gland (CMS-HCC) [...] Priority Date/Time Associated Diagnosis Comments THYROGLOBULIN Routine 02/28/2015 10:25 AM EST Malignant neoplasm of thyroid gland (CMS-HCC) TSH Routine 02/28/2015 10:25 AM EST Malignant neoplasm of thyroid gland (CMS-HCC) documented in this encounter Results * (ABNORMAL) Thyroglobulin (02/28/2015 10:25 AM EST) Thyroglobulin <0.2(L) 1.6 - 59.9 ng/mL 02/28/2015 2:48 PM EST [facility] Thyroglobulin Ab <20.0 0.0 - 39.0 IU/mL 02/28/2015 2:48 PM EST [facility] Serum specimen (specimen) 02/28/2015 10:25 AM EST 02/28/2015 12:04 PM EST Nabeel Castro MD LAB BLOOD ORDERABLES Final Result [facility] [address] [facility]. [address] * TSH (Thyroid Stimulating Hormone) (02/28/2015 10:25 AM EST) TSH 4.34 0.34 - 5.60 uIU/mL 02/28/2015 1:09 PM EST [facility] Serum specimen (specimen) 02/28/2015 10:25 AM EST 02/28/2015 12:04 PM EST Nabeel Castro MD LAB BLOOD ORDERABLES Final Result Performing Organization Address City/[facility]/ZIP Co de Phone Number [facility] [address] documented in this encounter Visit Diagnoses Diagnosis Malignant neoplasm of thyroid gland (CMS-HCC)- Primary Malignant neoplasm of thyroid gland documented in this encounter Care Teams Vendor Specialist Relationship Specialty Start Date End Date Lacy Zayas MD [address] [place] [phone] PCP - General 12/11/07 documented as of this encounter
--- OUTSIDE RECORDS SUMMARY | 2024-11-05 15:50 | XMS_ITS | Encounter Summary ---
Author Organization [facility] Address [facility] [place] [address] Care Team Providers Care Tuber Machine Operator Name Role Phone Lacy Zayas MD Primary Care Provider [phone] Source Comments This information has been disclosed [...] release of HIV test results or diagnoses. [id number] Health Encounter Details Date Type Department Care Team (Late st Contact Info) Description 05/23/2014 Orders Only [facility] Nuclear Medicine [address] [place] [phone] Nabeel Castro MD Malignant neoplasm of thyroid [...] Priority Date/Time Associated Diagnosis Comments THYROGLOBULIN Routine 05/24/2014 9:55 AM EDT Malignant neoplasm of thyroid gland (CMS-HCC) TSH Routine 05/24/2014 9:55 AM EDT Malignant neoplasm of thyroid gland (CMS-HCC) documented in this encounter Results * (ABNORMAL) Thyroglobulin (05/24/2014 9:55 AM EDT) Thyroglobulin <0.2(L) 1.6 - 59.9 ng/mL 05/24/2014 2:[address] [facility] Thyroglobulin Ab <20.0 0.0 - 39.0 IU/mL 05/24/2014 2:[address] [facility] Serum specimen (specimen) 05/24/2014 9:55 AM EDT 05/24/2014 10:25 AM EDT Nabeel Castro MD LAB BLOOD ORDERABLES Final Result [facility] [address] [facility] * (ABNORMAL) TSH (Thyroid Stimulating Hormone) (05/24/2014 9:55 AM EDT) TSH 33.19(H) 0.34 - 5.60 uIU/mL 05/24/2014 11:[address] [facility] Comment:Please note: Effecti ve 02/19/14, reference range for this assay has changed. Serum specimen (specimen) 05/24/2014 9:55 AM EDT 05/24/2014 10:25 AM EDT Nabeel Castro MD LAB BLOOD ORDERABLES Final Result [facility] [address] [facility] documented in this encounter Visit Diagnoses Diagnosis Malignant neoplasm of thyroid gland (CMS-HCC)- Primary Malignant neoplasm of thyroid gland documented in this encounter Care Teams Tuber Machine Operator Relationship Specialty Start Date End Date Lacy Zayas MD [address] [place] [address] PCP - General 12/11/07 documented as of this encounter
--- OUTSIDE RECORDS SUMMARY | 2024-11-05 15:50 | XMS_ITS | Encounter Summary ---
Author Organization [place] [address] Care Team Providers Care Ar Manager Name Role Phone Lacy Zayas MD Primary Care Provider [phone] José Priest MD Primary Care Provider [phone] Kanchan Martinez MD Unavailable [phone] Encounter Details Date Type Department Care Team (Late st Contact Info) Description 05/24/2012 Orders Only [facility] [address] [facility] [address] [place] [phone] Dominik Wharton MD Social History Tobacco Use Types Packs/Day Years Used Date Smoking Tobacco: Never Smokeless Tobacco: Never Alcohol Use Standard Drinks/Week Comments No 0 (1 standard drink = 0.6 oz pur e alcohol) Comments No Sex and Gender Information Value Date Recorded Sex Assigned at Not on file Legal Sex Female 9:17 PM EDT Gender Identity Not on file Sexual Orientation Not on file documented as of this encounter Plan of Treatment Upcoming Encounters Date Type Department Care Team (Late st Contact Info) Description 11/21/2024 1:30 PM EDT Office Visit [facility] [place] [address] [place], [place] [phone] Kanchan Martinez MD [address] [place] [address] 05/21/2025 10:40 AM EDT Office Visit [facility] [address] [place] [phone] Susan Mike MD [address] [facility] [address] [place] [address] documented as of this encounter Procedures Procedure Name Priority Date/Time Associated Diagnosis Comments GMED COLONOSCOPY Routine 05/24/2012 6:30 AM EDT documented in this encounter Results * GMED COLONOSCOPY (05/24/2012 6:30 AM EDT) 05/24/2012 6:30 AM EDT Impressions [facility] - 07/05/2014 1:57 PM EDT Mild [...] PROCEDURE ORDERABLES Edit ed Result - Final [facility] [address] [place] [address] documented in this encounter Visit Diagnoses Not on filedocumented in this encounter Additional Health Concerns Infection Onset Date Last Indicated Resolved Time COVID-19 11/03/2020 11/03/2020 11/23/2020 10:1 2 PM EDT documented as of this encounter Care Teams Ar Manager Relationship Specialty Start Date End Date Lacy Zayas MD [address] [place] [address] PCP - General 07/08/09 06/27/22 José Priest MD [address] [place] [address] PCP - General Family Medicine 01/14/23 Kanchan Martinez MD [address] [place] [address] Internal Medicine-Cardiovascular Disease 04/25/24 documented as of this encounter
[2024-11-05 16:23] LABS: Albumin Level 4.1 g/dl (3.5-5.0); Chloride 103 mmol/L (98-107); Potassium 4.9 mmoL/L (3.5-5.1); Sodium 139 mmol/L (136-145)
[2024-11-05 16:25] LABS: Blood Urea Nitrogen 20 mg/dl (7-17); Creatinine,Serum 0.80 mg/dl (0.52-1.04); Estimated Glomerular Filt Rate 71 ml/min (>60); GFR (African American) 86 ML/MIN (>60)
[2024-11-05 16:26] LABS: Alanine Aminotransferase 22 U/L (12-78); Albumin/Globulin Ratio 1.5 (1.1-1.8); Alkaline Phosphatase 88 U/L (38-126); Anion Gap 10.9 mEq/L (5-15); Aspartate Amino Transferase 32 U/L (14-36); Bilirubin,Total 0.4 mg/dl (0.2-1.3); Calcium 9.7 mg/dl (8.4-10.2); Carbon Dioxide 30 mmol/L (22.0-30.0); Cholesterol 203 mg/dl (140-200); Globulin 2.8 g/dL (1.3-3.2); Glucose 89 mg/dl (74-100); HDL Cholesterol 74 mg/dl (40-60); Total Protein,Serum 6.9 g/dl (6.3-8.2); Triglycerides 97 mg/dl (30-150)
[2024-11-05 16:43] LABS: Free T4 (Free Thyroxine) 1.96 ng/dl (0.78-2.19)
[2024-11-05 16:59] LABS: Thyroid Stimulating Hormone 0.43 uIU/mL (0.465-4.68)
== END 2024-11-05 23:59 | disposition home or self-care (01) ==
LOC: LAB.DROPOF 15:47
PROVIDERS: PCP Nurse Practitioner; Visit Provider Nurse Practitioner
DX: E78.5 Hyperlipidemia, unspecified (principal); I10 Essential (primary) hypertension; E03.9 Hypothyroidism, unspecified
CPT/HCPCS: 80053; 80061; 82043; 82570; 84439; 84443